=== PATIENT | female | born 1935 | race Caucasian/White ===

== ENCOUNTER → 2019-01-16 | Outpatient (REF) | payer MEDICARE ==
[2019-01-16 19:11] LABS: APPEARANCE, URINE CLEAR (CLEAR); BACTERIA, URINE AUTO NEGATIVE (NEGATIVE); BILIRUBIN, URINE AUTO NEGATIVE (NEGATIVE); BLOOD, URINE BLOOD 1+ (NEGATIVE); COLOR, URINE YELLOW (YELLOW); GLUCOSE, URINE (UA) AUTO NEGATIVE (NEGATIVE); KETONE, URINE AUTO NEGATIVE (NEGATIVE); LEUKOCYTE ESTERASE, URINE AUTO NEGATIVE (NEGATIVE); MUCUS, URINE SMALL (NEGATIVE); NITRITE, URINE AUTO NEGATIVE (NEGATIVE); PROTEIN, URINE AUTO NEGATIVE (NEGATIVE); RBC, URINE AUTO 10 /HPF (0-3); SPECIFIC GRAVITY URINE AUTO 1.018 (1.002-1.035); SQUAMOUS EPITHELIAL CELL UR AU 0 /HPF (0-6); UROBILINOGEN, URINE AUTO 0.2 mg/dL (0.0-2.0); WBC, URINE AUTO 1 /HPF (0-3)
== END ==
LOC: M SMT 18:10
PROVIDERS: ATTEND Nurse Practitioner Family
DX: R31.9 Hematuria, unspecified (principal)
CPT/HCPCS: 36415; 80048; 81001; 87088; 87186; 88108; G0463

== ENCOUNTER → 2019-01-16 | Outpatient (CLI) | payer MEDICARE ==
[2019-01-16 19:18] LABS: BLOOD UREA NITROGEN 12 MG/DL (7-18); CALCIUM LEVEL 8.7 MG/DL (8.8-10.2); CARBON DIOXIDE LEVEL 30 MEQ/L (21-32); CHLORIDE LEVEL 104 MEQ/L (98-107); CREATININE FOR GFR 0.81 MG/DL (0.55-1.30); GLOMERULAR FILTRATION RATE > 60.0 (>32); GLUCOSE, FASTING 89 MG/DL (70-100); POTASSIUM SERUM 3.9 MEQ/L (3.5-5.1); SODIUM LEVEL 139 MEQ/L (136-145)
== END ==
LOC: M SMT 14:46
PROVIDERS: ATTEND Nurse Practitioner Family
DX: R31.9 Hematuria, unspecified (principal)

== ENCOUNTER → 2019-01-23 | Outpatient (CLI) | payer MEDICARE ==
[~2019-01-23] MED LIST: ISOVUE-370 76% 100ML VIAL (Q9967) As Ordered ONE
--- NOTE | 2019-01-24 06:53 | REP ---
Clinical: Hematuria. Technique: Axial precontrast, contrast enhanced, and delayed images of the abdomen and pelvis using 100 ml Isovue 370 intravenous contrast material. Coronal and sagittal re-formations as well as 3-D MIP urogram images obtained. Comparison: None. Findings: Evaluation of the urinary tract system in all phases of enhancement demonstrates normal age-appropriate bilateral kidneys, ureters and bladder. Specifically, no hydroureteronephrosis, perinephric stranding, intrarenal or obstructing ureteral calculi identified. No renal cyst or mass is identified and the kidneys demonstrate symmetric normal enhancement as well as excretion to the collecting system. Mild age-related renal atrophic changes suggested. Liver, spleen, pancreas, and bilateral adrenal glands are normal. Few scattered incidental hepatic and splenic calcifications suggest prior granulomatous disease. Evidence of prior cholecystectomy noted. The enteric system is without obstruction or acute inflammatory process. Scattered colonic and sigmoid diverticulosis noted without acute diverticulitis. Pelvis demonstrates normal bladder and evidence of prior hysterectomy. No ascites. No free air. No adenopathy. Abdominal aorta and vasculature normal. Surrounding musculoskeletal structures are intact. Lung bases demonstrate chronic age-related dependent and fibroatelectatic changes. Impression: 1. Essentially normal appearance to the kidneys and urinary tract system. Mild age-related renal changes are identified. 2. Colonic and sigmoid diverticula without acute diverticulitis. 3. Evidence of prior cholecystectomy and hysterectomy. Electronically Signed by Renato King MD 01/24/2019 06:44 A
== END ==
LOC: M RAD 15:12
PROVIDERS: ATTEND Nurse Practitioner Family
DX: R31.9 Hematuria, unspecified (principal); K57.92 Diverticulitis of intestine, part unspecified, without perforation or abscess without bleeding; Z90.49 Acquired absence of other specified parts of digestive tract
CPT/HCPCS: 74178; Q9967

== ENCOUNTER 2020-05-20 09:05 | Inpatient (IN) | payer MEDICARE ==
[~2020-05-20] VITALS: Ht 167.6 cm; Wt 68.1 kg
[2020-05-20] MEDS ORDERED: BOOSTRIX/ADACEL VACCINE (DIPHTH/PERTUSS/ACELL/TETANUS) 0.5ML SYR IM ONE (09:45)
[2020-05-20] MEDS ORDERED: LIDOCAINE W/EPINEPHRINE 1% 20ML VIAL SC ONE (10:00)
--- NOTE | 2020-05-20 10:17 | REP ---
INDICATION: fall/weakness. COMPARISON: None. TECHNIQUE: SINGLE PORTABLE AP VIEW OF THE CHEST WAS PERFORMED. FINDINGS: THERE IS NO ACUTE INFILTRATE OR PULMONARY EDEMA. LUNGS ARE CLEAR. HEART IS NOT SIGNIFICANTLY ENLARGED. MEDIASTINAL SILHOUETTE IS UNREMARKABLE. THE VISUALIZED OSSEOUS STRUCTURES ARE INTACT. IMPRESSION: NO ACUTE PULMONARY DISEASE. <Electronically signed by Raul Moe > 05/20/20 [id number]
--- NOTE | 2020-05-20 10:18 | REPVR ---
PROCEDURE INFORMATION: Exam: CT Head Without Contrast Exam date and time: 05/20/2020 10:08 AM Age: 84 years old Clinical indication: Injury or trauma; Fall; Blunt trauma (contusions or hematomas) TECHNIQUE: Imaging protocol: Computed tomography of the head without contrast. Radiation optimization: All CT scans at this facility use at least one of these dose optimization techniques: automated exposure control; mA and/or kV adjustment per patient size (includes targeted exams where dose is matched to clinical indication); or iterative reconstruction. COMPARISON: No relevant prior studies available. FINDINGS: Brain: Chronic lacunar infarction right lentiform nucleus and adjacent capsular white matter. Multiple small chronic lacunar infarctions of the bilateral thalami. Moderate hypoattenuating foci are noted in the central cerebral, posterior superior periatrial and anterior lateral ventricular periventricular white matter bilaterally. No intracranial hemorrhage. No mass or acute cortical infarction identified. Cerebral ventricles: Prominence of the ventricular system and subarachnoid spaces is consistent with the patient's age of 84 years. Bones/joints: Right temporomandibular joint primary osteoarthritis. Paranasal sinuses: Visualized sinuses are unremarkable. No fluid levels. Mastoid air cells: Visualized mastoid air cells are well aerated. Orbital cavity: Right prior cataract surgery. Vasculature: Atherosclerotic calcifications are present involving the carotid artery siphons bilaterally. Soft tissues: Unremarkable. Dental: Edentulous maxilla and mandible. IMPRESSION: 1. Chronic lacunar infarction right lentiform nucleus/capsular white matter. 2. Multiple small chronic lacunar infarctions bilateral thalami. 3. Age appropriate supratentorial and infratentorial atrophy. 4. Moderate chronic white matter microvascular ischemic disease. 5. No acute intracranial injury identified. Electronically signed by: Suresh Julian On 05/20/2020 10:18:15 AM
--- NOTE | 2020-05-20 10:19 | REP ---
INDICATION: fall/laceration. COMPARISON: None. TECHNIQUE: AP view of the pelvis is performed as well as AP and frogleg views of bilateral hips. FINDINGS: There is no acute fracture or dislocation. There are mild degenerative changes of both hip joints with mild joint space narrowing and subchondral sclerosis. There is linear periarticular calcification along the lateral aspect of the right hip joint which may represent bursal calcifications. Similar calcifications are seen on the left, to a lesser extent. There are degenerative changes of the lower lumbar spine. IMPRESSION: No acute fracture or dislocation. Arthritic changes. <Electronically signed by Raul Moe > 05/20/20 [id number]
--- NOTE | 2020-05-20 10:20 | REP ---
INDICATION: fall/laceration COMPARISON: None TECHNIQUE: Three views right elbow . FINDINGS: There is no evidence of acute fracture, dislocation, or intrinsic bone disease. IMPRESSION: No fracture or dislocation. <Electronically signed by Raul Moe > 05/20/20 [id number]
--- NOTE | 2020-05-20 10:22 | REPVR ---
PROCEDURE INFORMATION: Exam: CT Cervical Spine Without Contrast Exam date and time: 05/20/2020 10:08 AM Age: 84 years old Clinical indication: Injury or trauma; Fall; Blunt trauma TECHNIQUE: Imaging protocol: Computed tomography images of the cervical spine without contrast. Radiation optimization: All CT scans at this facility use at least one of these dose optimization techniques: automated exposure control; mA and/or kV adjustment per patient size (includes targeted exams where dose is matched to clinical indication); or iterative reconstruction. COMPARISON: No relevant prior studies available. FINDINGS: Bones/joints: Mild C3-C4 and C4-C5 anterolisthesis with annular bulging. Discs/Spinal canal/Neural foramina: Posterior ligamentum flavum ossification at C2-C3, C3-C4, C4-C5, C5-C6 and C6-C7, prominent on the right at C5-C6. Mild left C2-C3 primary facet osteoarthritis. Moderate left C3-C4 and C4-C5 primary facet osteoarthritis. Moderately severe right, moderate left C5-C6 neural foraminal narrowing. Mild left C6-C7 primary facet osteoarthritis. Soft tissues: Transverse ligament calcification. Lungs: Lung apices are normal. Other findings: C5-6 degenerative disc disease with moderate spondylosis. IMPRESSION: 1. Degenerative changes as above. 2. No acute cervical spinal bony injury identified. Electronically signed by: Suresh Julian On 05/20/2020 10:22:11 AM
[2020-05-20 10:23] LABS: BASO % 0.3 % (0.0-1.0); EOS # 0.1 10^3/uL (0.0-0.5); EOS % 0.7 % (0.0-3.0); HEMATOCRIT 39.6 % (36.0-47.0); HEMOGLOBIN 12.9 g/dl (12.0-15.5); LYMPH % 14.7 % (24.0-44.0); MEAN CORPUSCULAR HEMOGLOBIN 31.1 pg (27.0-33.0); MEAN CORPUSCULAR HGB CONC 32.6 g/dl (32.0-36.5); MEAN CORPUSCULAR VOLUME 95.4 fl (80.0-96.0); MONO # 0.7 10^3/uL (0.0-0.8); MONO % 10.5 % (0.0-5.0); NEUTROPHILS # 5.1 10^3/uL (1.5-8.5); NEUTROPHILS % 73.4 % (36.0-66.0); PLATELET COUNT, AUTOMATED 203 10^3/uL (150-450); RED BLOOD COUNT 4.15 10^6/uL (4.00-5.40); WHITE BLOOD COUNT 6.9 10^3/uL (4.0-10.0)
[2020-05-20 10:34] LABS: INR 0.89; PROTHROMBIN TIME 12.2 SECONDS (12.5-14.3)
[2020-05-20 10:35] LABS: PARTIAL THROMBOPLASTIN TIME 27.2 SECONDS (24.2-38.5)
[2020-05-20 10:53] LABS: ALBUMIN 3.5 GM/DL (3.2-5.2); ALT/SGPT 23 U/L (12-78); BILIRUBIN,TOTAL 0.6 MG/DL (0.2-1.0); BLOOD UREA NITROGEN 13 MG/DL (7-18); CALCIUM LEVEL 8.8 MG/DL (8.8-10.2); CARBON DIOXIDE LEVEL 27 MEQ/L (21-32); CHLORIDE LEVEL 106 MEQ/L (98-107); CK-MB VALUE MASS 4.5 NG/ML (<3.6); CPK CREATINE PHOSPHOKINASE 624 U/L (26-192); CREATININE FOR GFR 0.74 MG/DL (0.55-1.30); GLOMERULAR FILTRATION RATE > 60.0 (>32); GLUCOSE, FASTING 101 MG/DL (70-100); MB/CK RELATIVE INDEX 0.72 (< OR =4); POTASSIUM SERUM 4.3 MEQ/L (3.5-5.1); SODIUM LEVEL 139 MEQ/L (136-145); TOTAL PROTEIN 6.6 GM/DL (6.4-8.2); TROPONIN I < 0.02 NG/ML (< 0.10)
--- NOTE | 2020-05-20 11:37 | REP ---
INDICATION: fall COMPARISON: None. TECHNIQUE: Four views right knee. FINDINGS: There is no evidence of acute fracture, dislocation, or intrinsic bone disease.There is moderate joint space narrowing with subchondral sclerosis and mild spurring. There is chondrocalcinosis. There is mild patellar spurring. There is significant soft tissue swelling anterior to the patella and infrapatellar region. IMPRESSION: No fracture or dislocation. Moderate arthritic changes. Anterior soft tissue swelling. <Electronically signed by Raul Moe > 05/20/20 [id number]
[2020-05-20] MEDS ORDERED: AMPICILLIN SOD/SULBACTAM SOD 3 GM in D5W MINI-BAG PLUS 100 ML IV ONE (15:00)
[2020-05-20] MEDS ORDERED: PARO20TA4 PO (15:10)
[2020-05-20] MEDS ORDERED: MED REC COMMENT (15:10)
[2020-05-20] MEDS ORDERED: ALEN70TA74 PO (15:10)
[2020-05-20] MEDS ORDERED: NS 500 ML IV ONE (15:30)
--- NOTE | 2020-05-20 15:55 | HPEPDOC ---
[facility] Medical History & Physical Date of Admission May 20, 2020 Date of Service: May 20, 2020 Attending Physician: Rizwana Tejada MD History and Physical CHIEF COMPLAINT: Fall HISTORY OF PRESENT ILLNESS: Agent is an 84-year-old female with past medical history of depression, unsteady gait requiring walker and cane who presented to [facility] emergency room after calling 911 after falling last evening. The patient is difficult to understand due to her not having her dentures and; however, she is able to recount some of the events of last evening. According to the patient she fell after becoming dizzy. She did not loose consciousness and fell to the ground. She attempted to get up but could not. She is calling 911. She denies chest pain, loss of consciousness, shortness of breath, nausea, vomiting, recent illness, fevers, chills, abdominal pain during the time of her fall. She also denies hitting her head upon eating the ground. She does remember falling and hitting her right elbow and her right knee. In the emergency room the patient was noted to have a laceration of her right elbow which appear to be down to the bone. She was started on antibiotics and stitched. She has had a right knee contusion which was causing significant pain. No concerning focal deficits, neurological issues. Blood pressure was 180 systolic likely secondary to her uncontrolled pain. The patient was given some blood pressure medication and pain medication which helped. Due to her injuries was difficult to ambulate her in the emergency room. CK was elevated at over 600. WBC within normal limits. UA negative, blood cultures were pending. The patient was admitted for fall with extremity injury, unsteady gait, mild rhabdomyolysis. REVIEW OF SYSTEMS: CONSTITUTIONAL: Denies l unexplained weight gain or weight loss, loss of appetite, fever, night sweats EYES: Denies eye drainage, eye pain, visual changes, dry/irritated eye EARS, NOSE, MOUTH, THROAT: Denies difficulty hearing, ringing in ears, mouth sores, loose teeth, sore throat, facial numbness or pain NECK: Denies swollen glands CARDIOVASCULAR: Denies irregular heartbeat, racing heart, chest pains, swelling of feet or legs, pain in legs with walking RESPIRATORY: Denies shortness of breath, night sweats, wheezing, sputum production, oxygen at home, coughing up blood, cough lasting > 1 month GASTROINTESTINAL: Denies abdominal pain, constipation, bloody stool, diarrhea, heartburn, nausea, vomiting GENITOURINARY: Denies painful urination, bloody urine, frequent urination, urgency, leaking urine, impotence INTEGUMENTARY: Denies rash, itching, new skin lesion, change in existing skin lesion, hair loss or increase, breast changes. NEUROLOGICAL: Denies headaches, numbness or tingling PSYCHIATRIC: Denies recurrent bad thoughts, mood swings, hallucinations PAST MEDICAL HISTORY: 1. Depression 2. Hx of unsteady gait 3. Hx of multiple strokes seen on CT 4. DIANA 5. HLD PAST SURGICAL HISTORY: None FAMILY HISTORY: Father: cancer. at 69 y/o Mother: cancer. at 49 y/o. SOCIAL HISTORY: Denies smoking, alcohol or drug use. Patient lives alone and has life alert. She states help comes weekly. She does not drive. She has a son Nic who she would like notified. She is a full code. ALLERGIES: Please see below. HOME MEDICATIONS: Please see below. PHYSICAL EXAMINATION: VS: Please see below CONSTITUTIONAL: Appears tired but cooperative, difficult to understand due to her not having dentures in but appropriate in her answers. AAOx3 EYES: PERRLA, EOM intact, corrective lenses in place HENT, MOUTH: Normocephalic, atraumatic, moist mucous membranes, nasal canula in place NECK: SUPPLE, no JVD, no lymphadenopathy, no carotid bruit CV: Regular rate and rhythm, S1S2 normal, no murmurs/rubs/gallops RESPIRATORY: Clear to auscultation bilaterally, no rales/rhonchi/wheezes GI: BS positive in 4 quadrants, soft, nontender, nondistended, no rebound or guarding, no organomegaly : Deferred MUSCULOSKELETAL: Right elbow injury/laceration, swelling and tender to touch, decreased ROM. Right knee swelling, bruising. No cyanosis, clubbing, joint deformity, extremity edema INTEGUMENTARY: Intact, no rashes, no lesions, no erythema NEUROLOGIC: Cranial Nerves II-XII are intact, no focal deficits PSYCHIATRIC: Mood and affect are normal LABORATORY DATA: Please see below IMAGING: Right elbow XR: No fracture or dislocation. CT head: 1. Chronic lacunar infarction right lentiform nucleus/capsular white matter. 2. Multiple small chronic lacunar infarctions bilateral thalami. 3. Age appropriate supratentorial and infratentorial atrophy. 4. Moderate chronic white matter microvascular ischemic disease. 5. No acute intracranial injury identified. ASSESSMENT: 84-year-old female with past medical history of depression, unsteady gait requiring walker and cane admitted for fall with extremity injury, unsteady gait, mild rhabdomyolysis. PLAN: #Fall 2/2 to dizziness. R/o orthostatic hypotension, ? presyncopal episode, cardiac arrhythmia -Denies chest pain, loss of consciousness -Hx of unsteady gait, uses walker and cane at home -Trop neg -F/u echocardiogram -C/w NS at 100 cc/hr, orthostatic Q12H, tele monitor -PT/OT # Mild rhabdomyolysis -CK elevated after down time after fall -Cr wnl -F/u daily labs, CK -C/w IVFs at 100 cc/hr #Hypertensive urgency, possibly 2/2 to uncontrolled pain and anxiety -No prior hx of HTN, not on home meds -Given hydralazine in ER -Monitor closely when on the floor and on fluids #Elbow laceration -Per ED, deep and to the bone -Pain control -C/w abx for now, transition to PO before discharge #Right knee contusion -C/w treatment above -PT/OT #Depression. -Stable -C/w home med #Hx of CVA -No new neurological deficits -New diagnosis to patient, multiple chronic infarcts seen on CT -Not on home ASA and statin -F/u lipid panel #Hx of mild cognitive impairment -Was appropriate to help answer some questions for mem -Would help by talking to family to clarify history -Redirect when and if needed #HLD -F/u lipid panel -Not on statin #DVT px -Enoxaparin DISPOSITION: Admitted under observation status. PT/OT ordered- will determine plan for discharge. Vital Signs Vital Signs Date Time Temp Pulse Resp B/P (MAP) Pulse Ox O2 Delivery O2 Flow Rate FiO2 05/20/20 15:30 97.8 92 20 188/60 (102) 95 Room Air Laboratory Data Labs 24H Laboratory Tests 2 05/20/20 10:12: Immature Granulocyte % (Auto) 0.4, Neutrophils (%) (Auto) 73.4H, Lymphocytes (%) (Auto) 14.7L, Monocytes (%) (Auto) 10.5H, Eosinophils (%) (Auto) 0.7, Basophils (%) (Auto) 0.3, Neutrophils # (Auto) 5.1, Lymphocytes # (Auto) 1.0L, Monocytes # (Auto) 0.7, Eosinophils # (Auto) 0.1, Basophils # (Auto) 0.0, Nucleated Red Blood Cells % (auto) 0.0, Prothrombin Time 12.2, Prothromb Time International Ratio 0.89, Activated Partial Thromboplast Time 27.2, Anion Gap 6L, Glomerular Filtration Rate > 60.0, Calcium Level 8.8, Total Bilirubin 0.6, Aspartate Amino Transf (AST/SGOT) 39H, Alanine Aminotransferase (ALT/SGPT) 23, Alkaline Phosphatase 69, Total Creatine Kinase 624H, Creatine Kinase MB 4.5H, Creatine Kinase MB Relative Index 0.72, Troponin I < 0.02, Total Protein 6.6, Albumin 3.5, Albumin/Globulin Ratio 1.1L 05/20/20 10:26: Urine Color YELLOW, Urine Appearance CLEAR, Urine pH 7.0, Urine Specific [place] 1.013, Urine Protein NEGATIVE, Urine Glucose (UA) NEGATIVE, Urine Ketones NEGATIVE, Urine Blood NEGATIVE, Urine Nitrite NEGATIVE, Urine Bilirubin NEGATIVE, Urine Urobilinogen 0.2, Urine Leukocyte Esterase NEGATIVE, Urine WBC (Auto) 1, Urine RBC (Auto) 12H, Urine Hyaline Casts (Auto) 0, Urine Bacteria (Au to) NEGATIVE, Urine Squamous Epithelial Cells 0, Urine Sperm (Auto) 05/20/20 15:17: CBC/BMP Laboratory Tests 05/20/20 10:12 Microbiology Microbiology 05/20/20 Blood Culture, Received Pending 05/20/20 Blood Culture, Received Pending Home Medications Scheduled Alendronate Sodium (Alendronate Sodium) 70 Mg Tablet, 70 MG PO QWEEK Paroxetine HCl (Paroxetine) 20 Mg Tablet, 20 MG PO DAILY Miscellaneous Medications [Med Rec Comment] UNABLE TO VERIFY WITH PATIENT, MED LIST OBTAINED FROM [facility] RECENTLY PICKED UP 05/07/20 Allergies Coded Allergies: No Known Allergies (Verified Allergy, Unknown, 05/20/20) A-FIB/CHADSVASC A-FIB History Current/History of A-Fib/PAF?: No Current PO Anticoag Therapy: No Age/Risk Factor Scoring CHADSVASC: CHADSVASC Response (Comments) Value Age Risk Factor Age >/= 75 years old 2 Gender Risk Factor Female 1 Hx of CHF No 0 Hx of HTN No 0 Hx of Stroke/TIA/or VTE Yes 2 Hx of Diabetes No 0 Total 5 Treatment Treatment ordered: Other Other anticoagulant ordered: enoxaparin Rizwana Tejada MD May 20, 2020 15:55
[2020-05-20] MEDS ORDERED: **hydrALAZINE HCL** 25 MG TAB PO ONE (16:15)
[2020-05-20] MEDS ORDERED: cloNIDine 0.1 MG TAB PO ONE (17:15)
[2020-05-20 18:30] VITALS: BP 134/62
[2020-05-20] MEDS: NS 1,000 ML IV SCH (18:44)
[2020-05-20] MEDS: AMPICILLIN SOD/SULBACTAM SOD 1.5 GM in D5W MINI-BAG PLUS 50 ML IV SCH (20:50)
[2020-05-20 22:00] VITALS: BP_SYST 138; BP_SYST 160; BP_SYST 168; BP_DIAS 62; BP_DIAS 72; BP_DIAS 78
[2020-05-20] MEDS ORDERED: NYSTATIN 100,000 UNITS/GM TOPICAL PWD 15 GM TOP PRN (22:00)
[2020-05-21] MEDS: NS 1,000 ML IV SCH ×3 (03:32→22:30)
[2020-05-21] MEDS: AMPICILLIN SOD/SULBACTAM SOD 1.5 GM in D5W MINI-BAG PLUS 50 ML IV SCH ×4 (03:32→20:30)
[2020-05-21 06:00] VITALS: BP_SYST 147; BP_SYST 148; BP_DIAS 81; BP_DIAS 82
[2020-05-21 06:05] VITALS: BP 148/81
[2020-05-21 06:45] LABS: HEMATOCRIT 37.7 % (36.0-47.0); HEMOGLOBIN 12.2 g/dl (12.0-15.5); MEAN CORPUSCULAR HEMOGLOBIN 31.4 pg (27.0-33.0); MEAN CORPUSCULAR HGB CONC 32.4 g/dl (32.0-36.5); MEAN CORPUSCULAR VOLUME 97.2 fl (80.0-96.0); PLATELET COUNT, AUTOMATED 186 10^3/uL (150-450); RED BLOOD COUNT 3.88 10^6/uL (4.00-5.40); WHITE BLOOD COUNT 7.2 10^3/uL (4.0-10.0)
[2020-05-21 07:04] LABS: ALBUMIN 2.9 GM/DL (3.2-5.2); ALT/SGPT 19 U/L (12-78); BILIRUBIN,TOTAL 0.6 MG/DL (0.2-1.0); BLOOD UREA NITROGEN 8 MG/DL (7-18); CALCIUM LEVEL 7.9 MG/DL (8.8-10.2); CARBON DIOXIDE LEVEL 25 MEQ/L (21-32); CHLORIDE LEVEL 109 MEQ/L (98-107); CHOLESTEROL LEVEL 248 MG/DL (<200); CHOLESTEROL RISK RATIO 4.509 (<5); CREATININE FOR GFR 0.65 MG/DL (0.55-1.30); GLOMERULAR FILTRATION RATE > 60.0 (>32); GLUCOSE, FASTING 98 MG/DL (70-100); HDL CHOLESTEROL 55 MG/DL (>40); LDL CHOLESTEROL 166 MG/DL (<100); NON-HDL-C 193 MG/DL; POTASSIUM SERUM 3.5 MEQ/L (3.5-5.1); SODIUM LEVEL 140 MEQ/L (136-145); TOTAL PROTEIN 6.1 GM/DL (6.4-8.2); TRIGLYCERIDES LEVEL 133 MG/DL (<150)
[2020-05-21] MEDS ORDERED: ASPIRIN 300 MG SUPP PR SCH (09:00)
[2020-05-21] MEDS ORDERED: PARoxetine 20MG TABLET PO SCH (09:00)
[2020-05-21] MEDS: ENOXAPARIN 30MG/0.3ML SYRINGE (J1650 PER 10MG) SC SCH (09:02)
--- NOTE | 2020-05-21 12:15 | IPNPDOC ---
Date Seen The patient was seen on 05/21/20. Progress Note SUBJECTIVE: Neurological changes described below in physical exam noted on rounds, much different from admission 05/20/20. STAT MRI brain ordered. NPO status. Discuss with Janis, [id number] to her son. She states that she is not normally slurred speech and she sounded totally different from her baseline this AM. OBJECTIVE: PHYSICAL EXAMINATION: VS: Please see below CONSTITUTIONAL: having word finding difficulty, slurred speech on exam. slower to respond today, awake but lethargic. able to tell me name and place but not reason she is here. Change from admission on 05/20/20 EYES: PERRLA, EOM intact, corrective lenses in place HENT, MOUTH: Normocephalic, atraumatic, dry oral mucous membranes NECK: SUPPLE, no JVD, no lymphadenopathy, no carotid bruit CV: Regular rate and rhythm, S1S2 normal, no murmurs/rubs/gallops RESPIRATORY: Clear to auscultation bilaterally, no rales/rhonchi/wheezes GI: BS positive in 4 quadrants, soft, nontender, nondistended, no rebound or guarding, no organomegaly : Deferred MUSCULOSKELETAL: right knee decreased ROM. Right knee swelling, bruising. No cyanosis, clubbing, joint deformity, extremity edema INTEGUMENTARY: Right elbow injury/laceration, swelling and tender to touch, right knee bruising, tender to touch, no rashes, no lesions, no erythema NEUROLOGIC: Right side facial droop-new compared to yesterday, tongue deviates to the right on exam. Right upper and lower ext weakness, 2/5 on exam for strength for RUE and RLE. 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 Strength on the left 4/5 which was similar to yesterday for upper and lower. Word finding difficulty, slow to respond, slurred speech. No pupillary deficits. LABORATORY DATA: Please see below IMAGING: MRI brain: F/u results Right elbow XR: No fracture or dislocation. CT head: 1. Chronic lacunar infarction right lentiform nucleus/capsular white matter. 2. Multiple small chronic lacunar infarctions bilateral thalami. 3. Age appropriate supratentorial and infratentorial atrophy. 4. Moderate chronic white matter microvascular ischemic disease. 5. No acute intracranial injury identified. ASSESSMENT: 84-year-old female with past medical history of depression, unsteady gait requiring walker and cane admitted for fall with extremity injury, unsteady gait, mild rhabdomyolysis currently ruling out CVA. . PLAN: #Right facial droop, increased weakness, slurred speech r/o CVA -Hypertensive urgency on admission 05/30/20 but no neurological deficits noted -High risk with hx of multiple chronic infarcts seen on CT head -Lipid panel: high cholesterol -Previously not on ASA and Statin -Speech therapy evaluated: mechanical soft, thin liquids -F/u STAT MRI brain -Tele -BP 148/80 but patient is on IVFs at 100 cc/hr -Contact neuro based off of results -NPO, neuro checks [id number] #Fall 2/2 to dizziness. R/o orthostatic hypotension, ? presyncopal episode, cardiac arrhythmia r/o developing neurological insult as cause also -Hx of unsteady gait, uses walker and cane at home, prior strokes (unknown to patient) vs. TIA -Trop neg -F/u echocardiogram -C/w NS at 100 cc/hr, neuro checks, tele monitor -PT/OT ordered # Mild rhabdomyolysis -Cr wnl, CK elevated >600 on admission -C/w IVFs at 100 cc/hr -F/u repeat CK in AM #Hypertensive urgency, possibly 2/2 to uncontrolled pain and anxiety- Resolved -BP improved with pain control, hydralazine and clonidine after admission -148/81 -Given hydralazine in ER -Monitor closely when on the floor and on fluids #Elbow laceration -Per ED, deep and to the bone -Pain control -C/w abx for now, transition to PO before discharge #Right knee contusion -C/w treatment above -PT/OT #Depression. -Stable -C/w home med #Hx of mild cognitive impairment -Was appropriate to help answer some questions for me on admission -discussed with family about baseline today #HLD -Elevated cholesterol -Not on statin but will start if able to take PO #DVT px -Enoxaparin DISPOSITION: Admit under inpatient status. F/u STAT MRI. e. VS, I&O, 24H, Fishbone Vital Signs/I&O Vital Signs Date Time Temp Pulse Resp B/P (MAP) Pulse Ox O2 Delivery O2 Flow Rate FiO2 05/21/20 06:05 87 148/81 (103) 05/21/20 06:00 98.6 20 99 Room Air I&O- Last 24 Hours up to 6 AM 05/21/20 06:00 Intake Total 1800 ml Output Total 300 ml Balance 1500 ml Laboratory Data 24H LABS Laboratory Tests 2 05/20/20 15:17: Coronavirus (COVID-19)(PCR) NEGATIVE 05/21/20 06:05: Nucleated Red Blood Cells % (auto) 0.0, Anion Gap 6L, Glomerular Filtration Rate > 60.0, Calcium Level 7.9L, Total Bilirubin 0.6, Aspartate Amino Transf (AST/SGOT) 28, Alanine Aminotransferase (ALT/SGPT) 19, Alkaline Phosphatase 63, Total Protein 6.1L, Albumin 2.9L, Albumin/Globulin Ratio 0.9L, Triglycerides Level 133, Total Cholesterol 248H, LDL Cholesterol 166H, Non-HDL Cholesterol (LDL + VLDL) 193, Total HDL Cholesterol 55, Cholesterol/HDL Ratio 4.509 CBC/BMP Laboratory Tests 05/21/20 06:05 Microbiology Microbiology 05/20/20 Blood Culture - Preliminary, Resulted No growth after 24 hours . All specim... 05/20/20 Blood Culture - Preliminary, Resulted No growth after 24 hours . All specim... Current Medications Current Medications Medications (Trade) Dose Ordered Sig/Chen Route PRN Reason Start Time Stop Time Status Last Admin Dose Admin Acetaminophen (Tylenol Tab) 650 mg Q4H PRN PO PAIN OR FEVER 05/20/20 16:00 Ampicillin Sodium/ Sulbactam Sodium 1.5 gm/Dextrose 50 ml @ 100 mls/hr Q6H IV 05/20/20 21:00 05/21/20 09:01 Enoxaparin Sodium (Lovenox) 30 mg DAILY SC 05/21/20 09:00 05/21/20 09:02 Home Med (Med Rec Complete!) ASDIRECTED XX 05/20/20 15:15 05/20/20 15:11 DC Nystatin (Mycostatin Powder, Nystop) Apply to intertriginous abdomi... BIDP PRN TOP RASH 05/20/20 22:00 Paroxetine HCl (PAXil) 20 mg DAILY PO 05/21/20 09:00 05/20/20 17:35 DC Sodium Chloride 1,000 ml @ 100 mls/hr Q10H IV 05/20/20 16:30 05/21/20 03:32 Allergies Coded Allergies: No Known Allergies (Verified Allergy, Unknown, 05/20/20) Rizwana Tejada MD May 21, 2020 12:15
--- NOTE | 2020-05-21 12:29 | REPVR ---
PROCEDURE INFORMATION: Exam: MR Head Without Contrast Exam date and time: 05/21/2020 11:52 AM Age: 84 years old Clinical indication: Speech disturbance and weakness, facial; Slurred speech; Additional info: Weakness, R/O CVA TECHNIQUE: Imaging protocol: MR of the head without contrast. COMPARISON: CT Head without contrast 05/20/2020 9:45 AM FINDINGS: Brain: 6 mm posterior limb left internal capsule acute lacunar infarction. Chronic right caudate body, paraventricular goldstein radiata and upper globus pallidus lacunar infarction. Chronic left mid paraventricular goldstein radiata lacunar infarction. Bilateral chronic thalamic lacunar infarctions. Extensive T2 hyperintense hyperintensity in the central cerebral and lateral ventricular periventricular white matter bilaterally. Cerebral ventricles: Age-appropriate. No hydrocephalus. Bones/joints: No acute abnormality identified. Paranasal sinuses: Normal as visualized. No acute sinusitis. Mastoid air cells: Normal as visualized. No mastoid effusion. Orbits: Right prior cataract surgery. Soft tissues: Unremarkable. IMPRESSION: 1. Acute left internal capsule lacunar infarction. 2. Chronic right deep nuclear and capsular white matter lacunar infarction. 3. Chronic left mid paraventricular goldstein radiata lacunar infarction. 4. Bilateral chronic thalamic lacunar infarctions. 5. Chronic microvascular ischemic white matter disease. Electronically signed by: Suresh Julian On 05/21/2020 12:28:47 PM
[2020-05-21 12:46] VITALS: BP 159/81
[2020-05-21 13:00] VITALS: BP 178/84
--- NOTE | 2020-05-21 14:24 | REPVR ---
PROCEDURE INFORMATION: Exam: MR Angiogram Head Without Contrast, Arteries Exam date and time: 05/21/2020 2:10 PM Age: 84 years old Clinical indication: Condition or disease; Infarction; Additional info: Left internal capsule infarct, acute TECHNIQUE: Imaging protocol: MR angiogram head without contrast. Exam focused on the arteries. COMPARISON: MRI-Brain without Contrast 05/21/2020 11:[address] Head without contrast 05/20/2020 9:45:19 AM FINDINGS: ANTERIOR CIRCULATION: Right internal carotid artery: Medially projecting 8 mm aneurysm of the right internal carotid artery cavernous segment (series 201, frames 85-87). No specific evidence of rupture. No stenosis. Right middle cerebral artery: Moderate-severe stenoses proximal right MCA M2 inferior and superior divisions. Right anterior cerebral artery: Moderate stenosis proximal right anterior cerebral artery A1 segment. Left internal carotid artery: Intracranial segment is patent with no significant stenosis. No aneurysm. Left middle cerebral artery: Moderate stenoses left middle cerebral artery M1 segment (series 201, frame 103). Left anterior cerebral artery: No occlusion or significant stenosis. No aneurysm. POSTERIOR CIRCULATION: Right vertebral artery: No occlusion or significant stenosis. No aneurysm. Left vertebral artery: No occlusion or significant stenosis. No aneurysm. Basilar artery: No occlusion or significant stenosis. No aneurysm. Right posterior cerebral artery: Severe stenosis right posterior cerebral artery P1/2, P2 and P3 segments. Left posterior cerebral artery: Severe stenosis left posterior cerebral artery P3 segment. IMPRESSION: 1. Right internal carotid artery aneurysm. 2. Moderate stenoses left middle cerebral artery M1 segment. 3. Moderate stenosis proximal right anterior cerebral artery A1 segment. 4. Severe stenosis right posterior cerebral artery P1/2, P2 and P3 segments. 5. Severe stenosis left posterior cerebral artery P3 segment. 6. Moderate-severe stenoses proximal right MCA M2 inferior and superior divisions. Electronically signed by: Suresh Julian On 05/21/2020 14:24:27 PM
--- NOTE | 2020-05-21 14:50 | REP ---
INDICATION: acute internal capsule infarct COMPARISON: None. TECHNIQUE: Real-time ultrasound evaluation and duplex Doppler interrogation of the extracranial carotid vasculature is performed. FINDINGS: There is mild plaquing and narrowing in both carotid bulbs extending into the internal and external carotid arteries. Luminal narrowing is less than 50%. There is no evidence of hemodynamically significant stenosis of either internal carotid artery. Normal flow velocities are seen. The vertebral arteries demonstrate normal direction of flow. RIGHT LEFT Peak systolic velocity ICA 53.2 cm/s 62.8 cm/s End diastolic velocity ICA 29.2 cm/s 18 cm/s Peak systolic velocity CCA 69.3 cm/s 70.8cm/s Peak systolic velocity ECA 60.4 cm/s 74.1 cm/s ICA/CCA ratio 0.77 0.89 IMPRESSION: Bilateral luminal narrowing of the internal carotid arteries less than 50%. No evidence of hemodynamically significant stenosis. <Electronically signed by Raul Moe > 05/21/20 [id number]
[2020-05-21 16:00] VITALS: BP 162/80
[2020-05-21 20:00] VITALS: BP 158/70
[2020-05-22] VITALS (8 sets, daily range): BP systolic 134–206; BP diastolic 78–100
[2020-05-22] MEDS: AMPICILLIN SOD/SULBACTAM SOD 1.5 GM in D5W MINI-BAG PLUS 50 ML IV SCH ×4 (04:23→21:09)
[2020-05-22 05:29] LABS: HEMATOCRIT 38.7 % (36.0-47.0); HEMOGLOBIN 12.8 g/dl (12.0-15.5); MEAN CORPUSCULAR HEMOGLOBIN 31.8 pg (27.0-33.0); MEAN CORPUSCULAR HGB CONC 33.1 g/dl (32.0-36.5); PLATELET COUNT, AUTOMATED 193 10^3/uL (150-450); RED BLOOD COUNT 4.03 10^6/uL (4.00-5.40); WHITE BLOOD COUNT 8.6 10^3/uL (4.0-10.0)
[2020-05-22 05:52] LABS: ALBUMIN 3.1 GM/DL (3.2-5.2); ALT/SGPT 21 U/L (12-78); BILIRUBIN,TOTAL 0.7 MG/DL (0.2-1.0); BLOOD UREA NITROGEN 6 MG/DL (7-18); CALCIUM LEVEL 7.8 MG/DL (8.8-10.2); CARBON DIOXIDE LEVEL 24 MEQ/L (21-32); CHLORIDE LEVEL 107 MEQ/L (98-107); CREATININE FOR GFR 0.61 MG/DL (0.55-1.30); GLOMERULAR FILTRATION RATE > 60.0 (>32); GLUCOSE, FASTING 109 MG/DL (70-100); POTASSIUM SERUM 3.2 MEQ/L (3.5-5.1); SODIUM LEVEL 138 MEQ/L (136-145); TOTAL PROTEIN 6.7 GM/DL (6.4-8.2)
[2020-05-22] MEDS: POTASSIUM CHLORIDE 10 MEQ SR TABLET PO ONE ×3 (07:45→10:57)
[2020-05-22] MEDS: ASPIRIN 81 MG CHEW TABLET PO SCH ×3 (09:00→10:57)
[2020-05-22] MEDS: ATORVASTATIN 20 MG TAB PO SCH ×3 (09:00→10:57)
[2020-05-22] MEDS: CLOPIDOGREL 75 MG TAB PO SCH ×3 (09:00→10:57)
[2020-05-22] MEDS: ENOXAPARIN 30MG/0.3ML SYRINGE (J1650 PER 10MG) SC SCH (09:33)
--- NOTE | 2020-05-22 11:37 | IPNPDOC ---
Date Seen The patient was seen on 05/22/20. Progress Note SUBJECTIVE: Confused this AM, believes she is at home and want to go "downstairs to see her son". She did not sleep well per staff. She is agitated and trying to get out of bed. Allowing permissive hypertension from 140-170 mmHg, decreased IVFs today. She refused meds this AM due to agitation but then later rested. OBJECTIVE: PHYSICAL EXAMINATION: VS: Please see below CONSTITUTIONAL: Angry with some increased agitation. EYES: PERRLA, EOM intact, corrective lenses in place HENT, MOUTH: Normocephalic, atraumatic, dry oral mucous membranes NECK: SUPPLE, no JVD, no lymphadenopathy, no carotid bruit CV: Regular rate and rhythm, S1S2 normal, no murmurs/rubs/gallops RESPIRATORY: Clear to auscultation bilaterally, no rales/rhonchi/wheezes GI: BS positive in 4 quadrants, soft, nontender, nondistended, no rebound or guarding, no organomegaly : Deferred MUSCULOSKELETAL: right knee decreased ROM. Right knee swelling, bruising. No cyanosis, clubbing, joint deformity, extremity edema INTEGUMENTARY: Right elbow injury/laceration, swelling and tender to touch, right knee bruising, tender to touch, no rashes, no lesions, no erythema NEUROLOGIC: Right side facial droop persists, Right upper and lower ext weakness, 2/5 on exam for strength for RUE and RLE. 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 Strength on the left 4/5 which was similar to yesterday for upper and lower. Slurred speech. No pupillary deficits. AAOx1 (self) LABORATORY DATA: Please see below IMAGING: MRA brain: 1. Right internal carotid artery aneurysm. 2. Moderate stenoses left middle cerebral artery M1 segment. 3. Moderate stenosis proximal right anterior cerebral artery A1 segment. 4. Severe stenosis right posterior cerebral artery P1/2, P2 and P3 segments. 5. Severe stenosis left posterior cerebral artery P3 segment. 6. Moderate-severe stenoses proximal right MCA M2 inferior and superior divisions. MRI brain: 1. Acute left internal capsule lacunar infarction. 2. Chronic right deep nuclear and capsular white matter lacunar infarction. 3. Chronic left mid paraventricular goldstein radiata lacunar infarction. 4. Bilateral chronic thalamic lacunar infarctions. 5. Chronic microvascular ischemic white matter disease. Right elbow XR: No fracture or dislocation. CT head: 1. Chronic lacunar infarction right lentiform nucleus/capsular white matter. 2. Multiple small chronic lacunar infarctions bilateral thalami. 3. Age appropriate supratentorial and infratentorial atrophy. 4. Moderate chronic white matter microvascular ischemic disease. 5. No acute intracranial injury identified. ASSESSMENT: 84-year-old female with past medical history of depression, unsteady gait requiring walker and cane admitted for fall with extremity injury, unsteady gait, mild rhabdomyolysis currently ruling out CVA. . PLAN: Discussed with Dr. Shell who suggested MRA brain, carotid doppler, [place] aspirin, tele,neuro checks. Believed this is likely 2/2 to uncontrolled HTN that she had on arrival, evolved. Echo already ordered. Repeating swallowing evaluation in the AM and if does well can start on atorvastatin 40 mg Po daily. Neurology consulted and will see. Transferring to PCU. 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 -C/w IVFs today but decreased rate -Neuro checks [id number] -PT/OT, speech therapy. #Hypertension, uncontrolled -BP improved with pain control, hydralazine and clonidine after admission -Allowing permissive hypertension currently with CVA of 140-170 mmHg -On 05/23/20 begin normalizing BP with medications #Altered mental status likely 2/2 to sleep deprivation, recent CVA with underlying mild cognitive impairment -Ensure mental status change is not 2/2 to worsening neurological event-not suspecting at this time -Start on trazodone HS to help sleep this evening #Fall 2/2 to insult above likely -C/w PT/OT # Mild rhabdomyolysis -Cr wnl, CK elevated >600 on admission -Decreased IVFs today, encourage food, drink #Elbow laceration -Per ED, deep and to the bone -Pain control -C/w abx for now, transition to PO if able #Right knee contusion -C/w treatment above -PT/OT #Depression. -Stable -C/w home med #Hx of mild cognitive impairment -Was appropriate to help answer some questions for me on admission -Currently agitated -discussed with family about baseline today #HLD -Elevated cholesterol -started on statin #DVT px -Enoxaparin DISPOSITION: Admit under inpatient status. Will need continued PT/OT. VS, I&O, 24H, Fishbone Vital Signs/I&O Vital Signs Date Time Temp Pulse Resp B/P (MAP) Pulse Ox O2 Delivery O2 Flow Rate FiO2 05/22/20 08:00 97.8 110 18 134/93 (107) 93 Room Air I&O- Last 24 Hours up to 6 AM 05/22/20 06:00 Intake Total 560 ml Output Total 50 ml Balance 510 ml Laboratory Data 24H LABS Laboratory Tests 2 05/22/20 04:49: Nucleated Red Blood Cells % (auto) 0.0, Anion Gap 7L, Glomerular Filtration Rate > 60.0, Calcium Level 7.8L, Total Bilirubin 0.7, Aspartate Amino Transf (AST/SGOT) 26, Alanine Aminotransferase (ALT/SGPT) 21, Alkaline Phosphatase 69, Total Protein 6.7, Albumin 3.1L, Albumin/Globulin Ratio 0.9L CBC/BMP Laboratory Tests 05/22/20 04:49 Microbiology Microbiology 05/20/20 Blood Culture - Preliminary, Resulted No Growth after 48 hours. All Specime... 05/20/20 Blood Culture - Preliminary, Resulted No Growth after 48 hours. All Specime... Current Medications Current Medications Medications (Trade) Dose Ordered Sig/Chen Route PRN Reason Start Time Stop Time Status Last Admin Dose Admin Acetaminophen (Tylenol Tab) 650 mg Q4H PRN PO PAIN OR FEVER 05/20/20 16:00 Ampicillin Sodium/ Sulbactam Sodium 1.5 gm/Dextrose 50 ml @ 100 mls/hr Q6H IV 05/20/20 21:00 05/22/20 09:34 Aspirin (Aspirin Chewable) 81 mg DAILY PO 05/22/20 09:00 05/22/20 10:57 Aspirin (Aspirin) 300 mg DAILY [place] 05/21/20 09:00 05/22/20 01:01 DC 05/21/20 14:34 Atorvastatin Calcium (Lipitor) 40 mg DAILY PO 05/22/20 09:00 05/22/20 10:57 Clopidogrel Bisulfate (PLAVix) 75 mg DAILY PO 05/22/20 09:00 05/22/20 10:57 Enoxaparin Sodium (Lovenox) 30 mg DAILY SC 05/21/20 09:00 05/22/20 09:33 Home Med (Med Rec Complete!) ASDIRECTED XX 05/20/20 15:15 05/20/20 15:11 DC Nystatin (Mycostatin Powder, Nystop) Apply to intertriginous abdomi... BIDP PRN TOP RASH 05/20/20 22:00 Paroxetine HCl (PAXil) 20 mg DAILY PO 05/21/20 09:00 05/20/20 17:35 DC Sodium Chloride 1,000 ml @ 75 mls/hr [id number] IV 05/20/20 16:30 05/21/20 13:09 Allergies Coded Allergies: No Known Allergies (Verified Allergy, Unknown, 05/20/20) Rizwana Tejada MD May 22, 2020 11:37
[2020-05-22] MEDS ORDERED: PILL CUTTER 1 EACH XX PRN (12:00)
[2020-05-22] MEDS: NS 1,000 ML IV SCH (14:05)
[2020-05-22] MEDS ORDERED: traZODone 25MG PER 1/2 TABLET PO SCH (21:00)
[2020-05-23] VITALS: BP 142/76
[2020-05-23] MEDS: AMPICILLIN SOD/SULBACTAM SOD 1.5 GM in D5W MINI-BAG PLUS 50 ML IV SCH ×4 (02:30→19:57)
[2020-05-23 04:00] VITALS: BP_SYST 146; BP_SYST 170; BP_DIAS 69; BP_DIAS 80
[2020-05-23 04:27] LABS: BLOOD UREA NITROGEN 9 MG/DL (7-18); CALCIUM LEVEL 7.9 MG/DL (8.8-10.2); CARBON DIOXIDE LEVEL 25 MEQ/L (21-32); CHLORIDE LEVEL 107 MEQ/L (98-107); GLOMERULAR FILTRATION RATE > 60.0 (>32); GLUCOSE, FASTING 117 MG/DL (70-100); POTASSIUM SERUM 3.4 MEQ/L (3.5-5.1); SODIUM LEVEL 139 MEQ/L (136-145)
[2020-05-23 04:31] LABS: HEMATOCRIT 35.2 % (36.0-47.0); HEMOGLOBIN 11.1 g/dl (12.0-15.5); MEAN CORPUSCULAR HEMOGLOBIN 30.7 pg (27.0-33.0); MEAN CORPUSCULAR HGB CONC 31.5 g/dl (32.0-36.5); MEAN CORPUSCULAR VOLUME 97.5 fl (80.0-96.0); PLATELET COUNT, AUTOMATED 187 10^3/uL (150-450); RED BLOOD COUNT 3.61 10^6/uL (4.00-5.40); WHITE BLOOD COUNT 8.6 10^3/uL (4.0-10.0)
[2020-05-23] MEDS: NS 1,000 ML IV SCH (04:42)
[2020-05-23 08:00] VITALS: BP 188/80
[2020-05-23] MEDS ORDERED: FUROSEMIDE 20 MG TAB PO ONE (09:00)
[2020-05-23] MEDS ORDERED: POTASSIUM CHLORIDE 10 MEQ SR TABLET PO SCH (09:00)
[2020-05-23] MEDS: ENOXAPARIN 30MG/0.3ML SYRINGE (J1650 PER 10MG) SC SCH (09:02)
[2020-05-23] MEDS ORDERED: hydrALAZINE 20MG/ML 1ML VIAL (J0360 PER 20MG) IV STA (09:04)
[2020-05-23] MEDS: ASPIRIN 81 MG CHEW TABLET PO SCH (10:53)
[2020-05-23] MEDS: lisinopriL 5 MG TAB PO SCH (10:54)
[2020-05-23] MEDS: ATORVASTATIN 20 MG TAB PO SCH (10:54)
[2020-05-23] MEDS: CLOPIDOGREL 75 MG TAB PO SCH (10:56)
[2020-05-23 12:00] VITALS: BP 161/67
--- NOTE | 2020-05-23 14:11 | IPNPDOC ---
Date Seen The patient was seen on 05/23/20. Progress Note SUBJECTIVE: More alert this AM, sobbing the entire encounter. Per nursing, she has been depressed since 05/22/20, crying often. She was very upset yesterday, frustrated with not being able to go home. Discussed case with Dr. Morrison, psychiatry. Will try to set up Facetime today with family, as being isolated from family is not helpful in this situation. OBJECTIVE: PHYSICAL EXAMINATION: VS: Please see below CONSTITUTIONAL: tearful, lethargic but AAOx2, following some commands EYES: PERRLA, EOM intact HENT, MOUTH: Normocephalic, atraumatic, dry oral mucous membranes NECK: SUPPLE, no JVD, no lymphadenopathy, no carotid bruit CV: Regular rate and rhythm, S1S2 normal, no murmurs/rubs/gallops RESPIRATORY: Clear to auscultation bilaterally, no rales/rhonchi/wheezes GI: BS positive in 4 quadrants, soft, nontender, nondistended, no rebound or guarding, no organomegaly : Deferred MUSCULOSKELETAL: right knee decreased ROM. Right knee swelling, bruising. No cyanosis, clubbing, joint deformity, extremity edema INTEGUMENTARY: Right elbow injury/laceration, swelling and tender to touch- healing well. Right knee bruising, tender to touch, no rashes, no lesions, no erythema- improving slowly. NEUROLOGIC: Right side facial droop persists, Right upper and lower ext weakness, 2/5 on exam for strength for RUE and RLE. 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 Strength on the left 4/5 which was similar to yesterday for upper and lower. Slurred speech. No pupillary deficits. AAOx1 (self) LABORATORY DATA: Please see below IMAGING: Echocardiogram completed, pending results transcribed MRA brain: 1. Right internal carotid artery aneurysm. 2. Moderate stenoses left middle cerebral artery M1 segment. 3. Moderate stenosis proximal right anterior cerebral artery A1 segment. 4. Severe stenosis right posterior cerebral artery P1/2, P2 and P3 segments. 5. Severe stenosis left posterior cerebral artery P3 segment. 6. Moderate-severe stenoses proximal right MCA M2 inferior and superior divisions. MRI brain: 1. Acute left internal capsule lacunar infarction. 2. Chronic right deep nuclear and capsular white matter lacunar infarction. 3. Chronic left mid paraventricular goldstein radiata lacunar infarction. 4. Bilateral chronic thalamic lacunar infarctions. 5. Chronic microvascular ischemic white matter disease. Right elbow XR: No fracture or dislocation. CT head: 1. Chronic lacunar infarction right lentiform nucleus/capsular white matter. 2. Multiple small chronic lacunar infarctions bilateral thalami. 3. Age appropriate supratentorial and infratentorial atrophy. 4. Moderate chronic white matter microvascular ischemic disease. 5. No acute intracranial injury identified. ASSESSMENT: 84-year-old female with past medical history of depression, unsteady gait requiring walker and cane admitted for fall with extremity injury, unsteady gait, mild rhabdomyolysis currently ruling out CVA. . 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 -Permissive HTN stopping today. BP high as 180 mmHg this AM. -Mod-severe stenosis noted on MRA brain -Lipid panel: high cholesterol -Speech therapy evaluated: pureed diet, thin liquids -Neuro consulted and evaluated -Echocardiogram done, pending results -D/c IVFs, started lisinopril at lower dose. Goal is <140/80 mmHg. -C/w dual antiplatelet therapy: ASA and plavix. C/w statin. -PT/OT, speech therapy. #Hypertension, uncontrolled -BP 180 systolic today -Please see plan above. #Altered mental status likely 2/2 to recent CVA with underlying mild cognitive impairment -Slightly more oriented this AM. Less confused on exam. More tearful, sad. -Concern is for developing of depression with not eating, taking medications, increased weeping, tearful. -At this time cannot diagnose as depression as CVA only occurred several days ago. -Discussed case with Dr. Morrison who advised to hold off on treatment. Can reassess in 1 week, if depression screening positive then can consider starting SSRI like paroxetine or sertraline- safest in geriatric patients. Avoid venlafaxine, fluoxetine. #Unsteady gait 2/2 to CVA -PT: "Patient ambulated with a 4WW prior. Patient is oriented to person and place but is very weak on her right side. She leans to the left in sitting and requires MODA. Patient was able to stand with MODAx2 and handheld assist, but could not tolerate standing. She will likely need rehab prior to d/c. -To resume PT/OT after weekend. # Mild rhabdomyolysis - resolved -Cr wnl, CK elevated >600 on admission -D/c IVFs today, encourage food, drink #Elbow laceration -Per ED, deep and to the bone -Pain control -C/w abx for now, transition to PO when consistently taking pills #Right knee contusion -C/w treatment above -PT/OT #Depression. -Stable -C/w home med #HLD -Elevated cholesterol -c/w statin #DVT px -Enoxaparin DISPOSITION: C/w PT/OT. Possible rehab if improves. VS, I&O, 24H, Fishbone Vital Signs/I&O Vital Signs Date Time Temp Pulse Resp B/P (MAP) Pulse Ox O2 Delivery O2 Flow Rate FiO2 05/23/20 12:00 97.7 95 18 161/67 (98) 95 Room Air I&O- Last 24 Hours up to 6 AM 05/23/20 06:00 Intake Total 1762.5 ml Output Total 1525 ml Balance 237.5 ml Laboratory Data 24H LABS Laboratory Tests 2 05/23/20 03:47: Nucleated Red Blood Cells % (auto) 0.0, Anion Gap 7L, Glomerular Filtration Rate > 60.0, Calcium Level 7.9L CBC/BMP Laboratory Tests 05/23/20 03:47 Microbiology Microbiology 05/20/20 Blood Culture - Preliminary, Resulted No Growth after 72 hours. All specime... 05/20/20 Blood Culture - Preliminary, Resulted No Growth after 72 hours. All specime... Current Medications Current Medications Medications (Trade) Dose Ordered Sig/Chen Route PRN Reason Start Time Stop Time Status Last Admin Dose Admin Acetaminophen (Tylenol Tab) 650 mg Q4H PRN PO PAIN OR FEVER 05/20/20 16:00 Ampicillin Sodium/ Sulbactam Sodium 1.5 gm/Dextrose 50 ml @ 100 mls/hr Q6H IV 05/20/20 21:00 05/23/20 09:02 Aspirin (Aspirin Chewable) 81 mg DAILY PO 05/22/20 09:00 05/23/20 10:53 Aspirin (Aspirin) 300 mg DAILY [place] 05/21/20 09:00 05/22/20 01:01 DC 05/21/20 14:34 Atorvastatin Calcium (Lipitor) 40 mg DAILY PO 05/22/20 09:00 05/23/20 10:54 Clopidogrel Bisulfate (PLAVix) 75 mg DAILY PO 05/22/20 09:00 05/23/20 10:56 Enoxaparin Sodium (Lovenox) 30 mg DAILY SC 05/21/20 09:00 05/23/20 09:02 Home Med (Med Rec Complete!) ASDIRECTED XX 05/20/20 15:15 05/20/20 15:11 DC Hydralazine HCl (Apresoline) 10 mg STAT STAT IV 05/23/20 09:04 05/23/20 09:05 DC 05/23/20 09:14 Lisinopril (Prinivil) 5 mg DAILY PO 05/23/20 09:00 05/23/20 10:54 Nystatin (Mycostatin Powder, Nystop) Apply to intertriginous abdomi... BIDP PRN TOP RASH 05/20/20 22:00 Paroxetine HCl (PAXil) 20 mg DAILY PO 05/21/20 09:00 05/20/20 17:35 DC Potassium Chloride (Micro-K Extencaps) 20 meq DAILY PO 05/23/20 09:00 05/23/20 10:56 Sodium Chloride 1,000 ml @ 75 mls/hr [id number] IV 05/20/20 16:30 05/23/20 07:40 DC 05/23/20 04:42 Trazodone HCl (Desyrel) 25 mg QHS PO 05/22/20 21:00 05/22/20 21:15 Allergies Coded Allergies: No Known Allergies (Verified Allergy, Unknown, 05/20/20) Rizwana Tejada MD May 23, 2020 14:11
[2020-05-23] MEDS: ACETAMINOPHEN TAB 650MG DOSE (2X325MG) PO PRN (15:30)
[2020-05-23 16:00] VITALS: BP 150/66
[2020-05-23 20:00] VITALS: BP 138/62
[2020-05-24] VITALS: BP 142/66
[2020-05-24] MEDS: AMPICILLIN SOD/SULBACTAM SOD 1.5 GM in D5W MINI-BAG PLUS 50 ML IV SCH ×2 (03:38→08:37)
[2020-05-24 04:00] VITALS: BP 132/64
[2020-05-24 04:29] LABS: HEMATOCRIT 33.9 % (36.0-47.0); HEMOGLOBIN 11.1 g/dl (12.0-15.5); MEAN CORPUSCULAR HEMOGLOBIN 31.3 pg (27.0-33.0); MEAN CORPUSCULAR HGB CONC 32.7 g/dl (32.0-36.5); MEAN CORPUSCULAR VOLUME 95.5 fl (80.0-96.0); PLATELET COUNT, AUTOMATED 183 10^3/uL (150-450); RED BLOOD COUNT 3.55 10^6/uL (4.00-5.40); WHITE BLOOD COUNT 8.4 10^3/uL (4.0-10.0)
[2020-05-24 04:49] LABS: BLOOD UREA NITROGEN 13 MG/DL (7-18); CALCIUM LEVEL 7.8 MG/DL (8.8-10.2); CARBON DIOXIDE LEVEL 25 MEQ/L (21-32); CHLORIDE LEVEL 108 MEQ/L (98-107); CREATININE FOR GFR 0.68 MG/DL (0.55-1.30); GLOMERULAR FILTRATION RATE > 60.0 (>32); GLUCOSE, FASTING 114 MG/DL (70-100); POTASSIUM SERUM 3.4 MEQ/L (3.5-5.1); SODIUM LEVEL 138 MEQ/L (136-145)
[2020-05-24 08:00] VITALS: BP 137/63
[2020-05-24] MEDS: ASPIRIN 81 MG CHEW TABLET PO SCH (08:37)
[2020-05-24] MEDS: ATORVASTATIN 20 MG TAB PO SCH (08:38)
[2020-05-24] MEDS: POTASSIUM CHLORIDE 10 MEQ SR TABLET PO SCH (08:38)
[2020-05-24] MEDS: lisinopriL 5 MG TAB PO SCH (08:39)
[2020-05-24] MEDS: ENOXAPARIN 30MG/0.3ML SYRINGE (J1650 PER 10MG) SC SCH (08:39)
[2020-05-24] MEDS: CLOPIDOGREL 75 MG TAB PO SCH (08:39)
[2020-05-24 11:50] VITALS: BP 128/60
--- NOTE | 2020-05-24 12:37 | IPNPDOC ---
Date Seen The patient was seen on 05/24/20. Progress Note SUBJECTIVE: Sitting up in bed this AM, tearful when I mentioned family possibly Facetiming today. Ate some breakfast today. BP better controlled. Denies chest pain, fevers, chills, n/v/d. OBJECTIVE: PHYSICAL EXAMINATION: VS: Please see below CONSTITUTIONAL: tearful, lethargic, following commands EYES: PERRLA, EOM intact HENT, MOUTH: Normocephalic, atraumatic, dry oral mucous membranes NECK: SUPPLE, no JVD, no lymphadenopathy, no carotid bruit CV: Regular rate and rhythm, S1S2 normal, no murmurs/rubs/gallops RESPIRATORY: Clear to auscultation bilaterally, no rales/rhonchi/wheezes GI: BS positive in 4 quadrants, soft, nontender, nondistended, no rebound or guarding, no organomegaly : Deferred MUSCULOSKELETAL: right knee decreased ROM. Right knee swelling, bruising. No cyanosis, clubbing, joint deformity, extremity edema INTEGUMENTARY: Right elbow injury/laceration, swelling and tender to touch- healing well. Right knee bruising, tender to touch, no rashes, no lesions, no erythema- improving slowly. NEUROLOGIC: Right side facial droop persists, Right upper and lower ext weakness, 2/5 on exam for strength for RUE and RLE. 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 Strength on the left 4/5 which was similar to yesterday for upper and lower. Slurred speech. No pupillary deficits. AAOx2 LABORATORY DATA: Please see below IMAGING: Echocardiogram completed, pending results transcribed MRA brain: 1. Right internal carotid artery aneurysm. 2. Moderate stenoses left middle cerebral artery M1 segment. 3. Moderate stenosis proximal right anterior cerebral artery A1 segment. 4. Severe stenosis right posterior cerebral artery P1/2, P2 and P3 segments. 5. Severe stenosis left posterior cerebral artery P3 segment. 6. Moderate-severe stenoses proximal right MCA M2 inferior and superior divisions. MRI brain: 1. Acute left internal capsule lacunar infarction. 2. Chronic right deep nuclear and capsular white matter lacunar infarction. 3. Chronic left mid paraventricular goldstein radiata lacunar infarction. 4. Bilateral chronic thalamic lacunar infarctions. 5. Chronic microvascular ischemic white matter disease. Right elbow XR: No fracture or dislocation. CT head: 1. Chronic lacunar infarction right lentiform nucleus/capsular white matter. 2. Multiple small chronic lacunar infarctions bilateral thalami. 3. Age appropriate supratentorial and infratentorial atrophy. 4. Moderate chronic white matter microvascular ischemic disease. 5. No acute intracranial injury identified. 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 Goal is 140/80 mmHg. -C/w dual antiplatelet therapy: ASA and plavix. -PT/OT, speech therapy. #Hypertension -Better controlled with patient taking meds, fluid stopped -BP 137/53. -Please see plan above. #Altered mental status likely 2/2 to recent CVA with underlying mild cognitive impairment, depression -Remains slow to respond, tearful, sad. -Concern is for developing of depression with not eating, taking medications, increased weeping, tearful. -At this time cannot diagnose as depression as CVA only occurred several days ago. -Discussed case with Dr. Morrison who advised to hold off on treatment. Can reassess in 1 week, if depression screening positive then can consider starting SSRI like paroxetine or sertraline- safest in geriatric patients. Avoid venlafaxine, fluoxetine. #Unsteady gait 2/2 to CVA -PT: "Patient ambulated with a 4WW prior. Patient is oriented to person and place but is very weak on her right side. She leans to the left in sitting and requires MODA. Patient was able to stand with MODAx2 and handheld assist, but could not tolerate standing. She will likely need rehab prior to d/c. -To resume PT/OT after weekend. #Hypokalemia, acute likely 2/2 to decreased PO intake -Increased standing dose of KCl to 40 mEq daily l -F/u daily labs #Elbow laceration -Per ED, deep and to the bone -Pain control -D/c IV abx, Po to continue for 3 additional days. #Right knee contusion -Pain control, improving swelling -PT/OT #HLD -Elevated cholesterol -c/w statin #DVT px -Enoxaparin Resolved issues: # Mild rhabdomyolysis DISPOSITION: C/w PT/OT. Possible rehab if improves, if does not then will likely need SNF. VS, I&O, 24H, Fishbone Vital Signs/I&O Vital Signs Date Time Temp Pulse Resp B/P (MAP) Pulse Ox O2 Delivery O2 Flow Rate FiO2 05/24/20 08:39 137/60 05/24/20 08:00 99.1 89 20 95 Room Air I&O- Last 24 Hours up to 6 AM 05/24/20 06:00 Intake Total 660 ml Output Total 800 ml Balance -140 ml Laboratory Data 24H LABS Laboratory Tests 2 05/24/20 03:49: Nucleated Red Blood Cells % (auto) 0.0, Anion Gap 5L, Glomerular Filtration Rate > 60.0, Calcium Level 7.8L CBC/BMP Laboratory Tests 05/24/20 03:49 Microbiology Microbiology 05/20/20 Blood Culture - Preliminary, Resulted No Growth after 72 hours. All specime... 05/20/20 Blood Culture - Preliminary, Resulted No Growth after 72 hours. All specime... Current Medications Current Medications Medications (Trade) Dose Ordered Sig/Chen Route PRN Reason Start Time Stop Time Status Last Admin Dose Admin Acetaminophen (Tylenol Tab) 650 mg Q4H PRN PO PAIN OR FEVER 05/20/20 16:00 05/23/20 15:30 Ampicillin Sodium/ Sulbactam Sodium 1.5 gm/Dextrose 50 ml @ 100 mls/hr Q6H IV 05/20/20 21:00 05/24/20 08:37 Aspirin (Aspirin Chewable) 81 mg DAILY PO 05/22/20 09:00 05/24/20 08:37 Aspirin (Aspirin) 300 mg DAILY OR 05/21/20 09:00 05/22/20 01:01 DC 05/21/20 14:34 Atorvastatin Calcium (Lipitor) 40 mg DAILY PO 05/22/20 09:00 05/24/20 08:38 Clopidogrel Bisulfate (PLAVix) 75 mg DAILY PO 05/22/20 09:00 05/24/20 08:39 Enoxaparin Sodium (Lovenox) 30 mg DAILY SC 05/21/20 09:00 05/24/20 08:39 Home Med (Med Rec Complete!) ASDIRECTED XX 05/20/20 15:15 05/20/20 15:11 DC Hydralazine HCl (Apresoline) 10 mg STAT STAT IV 05/23/20 09:04 05/23/20 09:05 DC 05/23/20 09:14 Lisinopril (Prinivil) 5 mg DAILY PO 05/23/20 09:00 05/24/20 08:39 Nystatin (Mycostatin Powder, Nystop) Apply to intertriginous abdomi... BIDP PRN TOP RASH 05/20/20 22:00 Paroxetine HCl (PAXil) 20 mg DAILY PO 05/21/20 09:00 05/20/20 17:35 DC Potassium Chloride (Micro-K Extencaps) 20 meq DAILY PO 05/23/20 09:00 05/24/20 07:47 DC 05/23/20 10:56 Potassium Chloride (Micro-K Extencaps) 40 meq DAILY PO 05/24/20 09:00 05/24/20 08:38 Sodium Chloride 1,000 ml @ 75 mls/hr [id number] IV 05/20/20 16:30 05/23/20 07:40 DC 05/23/20 04:42 Trazodone HCl (Desyrel) 25 mg QHS PO 05/22/20 21:00 05/23/20 14:08 DC 05/22/20 21:15 Allergies Coded Allergies: No Known Allergies (Verified Allergy, Unknown, 05/20/20) Rizwana Tejada MD May 24, 2020 12:37
[2020-05-24 14:56] VITALS: BP 121/48
[2020-05-24] MEDS: AUGMENTIN 500 MG TAB PO SCH (20:08)
[2020-05-24 22:00] VITALS: BP 153/71
[2020-05-25 06:00] VITALS: BP 147/61
[2020-05-25 07:22] LABS: HEMATOCRIT 32.5 % (36.0-47.0); HEMOGLOBIN 10.5 g/dl (12.0-15.5); MEAN CORPUSCULAR HGB CONC 32.3 g/dl (32.0-36.5); MEAN CORPUSCULAR VOLUME 95.9 fl (80.0-96.0); PLATELET COUNT, AUTOMATED 196 10^3/uL (150-450); RED BLOOD COUNT 3.39 10^6/uL (4.00-5.40); WHITE BLOOD COUNT 7.5 10^3/uL (4.0-10.0)
[2020-05-25 08:13] LABS: BLOOD UREA NITROGEN 15 MG/DL (7-18); CALCIUM LEVEL 8.2 MG/DL (8.8-10.2); CARBON DIOXIDE LEVEL 25 MEQ/L (21-32); CHLORIDE LEVEL 108 MEQ/L (98-107); GLOMERULAR FILTRATION RATE > 60.0 (>32); GLUCOSE, FASTING 109 MG/DL (70-100); POTASSIUM SERUM 4.1 MEQ/L (3.5-5.1); SODIUM LEVEL 138 MEQ/L (136-145)
[2020-05-25] MEDS: ATORVASTATIN 20 MG TAB PO SCH (10:32)
[2020-05-25] MEDS: AUGMENTIN 500 MG TAB PO SCH ×2 (10:32→20:00)
[2020-05-25] MEDS: ASPIRIN 81 MG CHEW TABLET PO SCH (10:32)
[2020-05-25] MEDS: lisinopriL 5 MG TAB PO SCH (10:32)
[2020-05-25] MEDS: CLOPIDOGREL 75 MG TAB PO SCH (10:32)
[2020-05-25] MEDS: POTASSIUM CHLORIDE 10 MEQ SR TABLET PO SCH (10:33)
[2020-05-25] MEDS: ENOXAPARIN 30MG/0.3ML SYRINGE (J1650 PER 10MG) SC SCH (10:33)
--- NOTE | 2020-05-25 11:01 | CR ---
DATE OF CONSULTATION: 05/21/2020 REASON FOR CONSULTATION: Acute stroke REFERRING PROVIDER: Dr. Rizwana Tejada HISTORY OF PRESENT ILLNESS: The patient is an 84-year-old female with a past medical history significant for depression. The patient presents to [facility] with being found on the ground. The patient apparently had a fall. She does wear dentures and without them she has dysarthria. She was noted to have significant dysarthria, slightly rhabdomyolysis and was admitted to the hospital overnight. The following morning the patient was noted to have right sided weakness. The patient was suspected to have had an acute stroke. She was noted to have an acute stroke of the left internal capsule. The patient subsequently was placed on Aspirin and statin therapy. MR angiography revealed multiple areas of moderate to high grade intracranial stenosis. The patient was then recommended to start Plavix 75 mg daily in addition to low dose 81 mg Aspirin. Moderate stenosis of left MCA and one segment proximal right DELVIN A-1 segment, severe stenosis of the right SOLID TIRE FINISHER P-1 and P-2 segment and P-3 segment, severe stenosis of the left SOLID TIRE FINISHER P-3 segment, moderate to severe stenosis proximal right MCA M-2 inferior and superior division segments. Right internal carotid artery aneurysm results are noted. The patient is hard to understand. She breathes from her mouth. Her mucous membranes are extremely dry. She has been getting significant hydration during this visit. Carotid ultrasound showed less than 50% narrowing, mild carotid plaquing. MRI brain revealed left internal capsule lacunar acute infarct, chronic left mid periventricular goldstein radiata lacunar infarct, bilateral chronic thalamic lacunar infarctions, chronic right deep nuclear and capsular white matter lacunar infarctions and chronic microvascular ischemic disease. The patient is oriented to her name. She is able to understand and speak language without any aphasia. She has significant dysarthria. She is unable to move her right arm much. She has a right facial droop. She can slightly move her right fingers in flexion position. She can slightly bend her right elbow but cannot lift her arm up off the bed. She cannot lift her right leg up off the bed. She withdraws reasonably quickly to noxious stimuli of the lower extremities. The patient's review of systems was hard to obtain as the patient is severely dysarthric, though she denies any chest pain or shortness of breath. PAST MEDICAL HISTORY: The patient's past medical history is significant for: * Depression. * Obstructive sleep apnea. * Hyperlipidemia. PAST SURGICAL HISTORY: None. FAMILY HISTORY: Noncontributory. SOCIAL HISTORY: The patient denies use of any tobacco, alcohol or illicit drugs. REVIEW OF SYSTEMS: The patient's review of systems is as documented. PHYSICAL EXAMINATION: VITAL SIGNS: Blood pressure 162/80, pulse rate 76, respiratory rate is 20, oxygenation is 95% on room air. Temperature is 97.7 degrees Fahrenheit. GENERAL APPEARANCE: The patient is oriented to her name and location. She is able to follow commands. She has significant dysarthria. HEENT: She can track well with her eyes. There is no nystagmus noted. Tongue appears midline. Mucous membranes are dry. Right facial droop is noted in the upper motor neuron distribution. The patient is able to wrinkle her forehead. She has weakness in eye closure on the right side compared to the left. NEUROLOGICAL: The patient has dense weakness of the right upper and lower extremities. She can move her finger flexors minimally and elbow flexion minimally. She can withdraw her right lower extremity to noxious stimuli. She moves her left upper and lower extremity with normal strength. Only the right side is affected. Deep tendon reflexes are decreased in the lower extremities to the knee upper extremities. The patient has intact tactile stimulation sense to light touch. The rest of the neurological examination is difficult as the patient has difficult time cooperating due to significant right sided hemiparesis. There is no ataxia or dysmetria on left finger to nose. Gait deferred. ASSESSMENT: An 84-year-old female with past medical history significant for hyperlipidemia, prior multiple strokes, presenting with being found on the ground, possibly secondary to right sided hemiparesis versus acute stroke occurring secondary to hypertension noted in the Emergency Department period. Nonetheless, the patient has moderate to severe intracranial high grade stenosis. PLAN: * The patient will be started on low dose Aspirin plus Plavix 75 mg daily. * Statin therapy is to be continued. * PT/OT evaluations. * Telemetry monitoring. * Echocardiogram. * Carotid ultrasound. * The patient can be followed up in the Outpatient Neurology Clinic within 2-6 weeks of discharge. Edited: mary 06/08/2020 0741 MTDD
[2020-05-25 14:00] VITALS: BP 124/60
--- NOTE | 2020-05-25 14:45 | ECHO ---
DATE OF PROCEDURE: 05/21/2020 Age: 84 Gender: Female Height: 66 inches Weight: 149 pounds Body surface area: 1.77 m2 PATIENT LOCATION: Inpatient [address] [place] [address], Room 4230. REFERRING PHYSICIAN: Dr. Rizwana Tejada INDICATION: Dizziness. MEASUREMENTS: 2D Measurements: RV 3.0 cm LV 4.4 cm Septum 0.8 cm Posterior wall 0.8 cm Aortic Root 3.1 cm LA 3.6 cm LVEF 75% Doppler Measurements: AV 1.05 msec LVOT 1.0 msec MV-E 66, A 122, E/A ratio 0.5 E prime medial 7.5, A prime medial 7, E prime lateral 7.4 Average E/E prime ratio 8.9/PCWP 12.9 mmHg PV 0.8 msec Pulmonary artery acceleration time 110 msec RVSP 30 mmHg IVC 1.0 cm COMMENTS: Normal sinus rhythm with intraventricular conduction disturbance. M-mode and two-dimensional echocardiography was performed with pulse, continuous wave, color flow, and tissue Doppler studies. Normal left ventricular size, wall thickness, and hyperkinetic wall motion. Left atrial size upper limits of normal with grade 1 left ventricular (LV) diastolic dysfunction, but normal estimated mean left atrial pressure. Normal right heart chamber sizes and motion and estimated pulmonary arterial pressure upper limits of normal to borderline increased. Inferior vena cava (IVC) was somewhat reduced in size with normal respiratory collapse suggestive of a somewhat low central venous pressure. Normal aortic dimensions. Normal appearing and functioning aortic valvular structure. Mild mitral annular calcification with adequate leaflet excursion and no posterior systolic buckling. Only trace-very mild mitral insufficiency (physiologic). Normal appearing and functioning tricuspid valve with very mild insufficiency. No apparent intracardiac mass or pericardial effusion. MTDD
--- NOTE | 2020-05-25 16:00 | IPNPDOC ---
Date Seen The patient was seen on 05/25/20. Progress Note SUBJECTIVE: Tearful today on exam, resumed home paroxetine. Eating better with assistance. Per PT: would benefit from continued services, skilled facility likely. Denies chest pain, fevers, chills, n/v/d. OBJECTIVE: PHYSICAL EXAMINATION: VS: Please see below CONSTITUTIONAL: tearful, lethargic, following commands EYES: PERRLA, EOM intact HENT, MOUTH: Normocephalic, atraumatic, dry oral mucous membranes NECK: SUPPLE, no JVD, no lymphadenopathy, no carotid bruit CV: Regular rate and rhythm, S1S2 normal, no murmurs/rubs/gallops RESPIRATORY: Clear to auscultation bilaterally, no rales/rhonchi/wheezes GI: BS positive in 4 quadrants, soft, nontender, nondistended, no rebound or guarding, no organomegaly : Deferred MUSCULOSKELETAL: right knee decreased ROM. Right knee swelling, bruising. No cyanosis, clubbing, joint deformity, extremity edema INTEGUMENTARY: Right elbow injury/laceration, swelling and tender to touch- healing well, stitches in place. Right knee bruising, tender to touch, no rashes, no lesions, no erythema- improving slowly. NEUROLOGIC: Right side facial droop persists, Right upper and lower ext weakness, 2/5 on exam for strength for RUE and RLE. 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 Strength on the left 4/5 which was similar to yesterday for upper and lower. Slurred speech. No pupillary deficits. AAOx2 LABORATORY DATA: Please see below IMAGING: Echocardiogram completed, pending results transcribed MRA brain: 1. Right internal carotid artery aneurysm. 2. Moderate stenoses left middle cerebral artery M1 segment. 3. Moderate stenosis proximal right anterior cerebral artery A1 segment. 4. Severe stenosis right posterior cerebral artery P1/2, P2 and P3 segments. 5. Severe stenosis left posterior cerebral artery P3 segment. 6. Moderate-severe stenoses proximal right MCA M2 inferior and superior divisions. MRI brain: 1. Acute left internal capsule lacunar infarction. 2. Chronic right deep nuclear and capsular white matter lacunar infarction. 3. Chronic left mid paraventricular goldstein radiata lacunar infarction. 4. Bilateral chronic thalamic lacunar infarctions. 5. Chronic microvascular ischemic white matter disease. Right elbow XR: No fracture or dislocation. CT head: 1. Chronic lacunar infarction right lentiform nucleus/capsular white matter. 2. Multiple small chronic lacunar infarctions bilateral thalami. 3. Age appropriate supratentorial and infratentorial atrophy. 4. Moderate chronic white matter microvascular ischemic disease. 5. No acute intracranial injury identified. 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 -PT/OT, speech therapy. #Hypertension -Better controlled with patient taking meds -Please see plan above. #Depression -Hx of depression with mild cognitive impairment -Remains slow to respond, tearful, sad. -Eating when helped to be fed. -Resumed home paroxetine today #Unsteady gait 2/2 to CVA -PT: "Pt remains slow to respond and requires inc time to process directions. Pt continues to have dec sitting balance and difficulty with weight shifting to advance RLE. Pt remains below PLOF and will cont to benefit from skilled PT. Recommending cont rehab" -PT/OT #Elbow laceration -Per ED, deep and to the bone -Pain control -D/c IV abx, Po to continue for 3 additional days. #Right knee contusion -Pain control, improving swelling -PT/OT #HLD -Elevated cholesterol -c/w statin #DVT px -Enoxaparin Resolved issues: # Mild rhabdomyolysis #Hypokalemia, acute likely 2/2 to decreased PO intake DISPOSITION: C/w PT/OT. Will likely need SNF. PFS aware. VS, I&O, 24H, Fishbone Vital Signs/I&O Vital Signs Date Time Temp Pulse Resp B/P (MAP) Pulse Ox O2 Delivery O2 Flow Rate FiO2 05/25/20 14:00 99.0 87 20 124/60 (81) 97 Room Air I&O- Last 24 Hours up to 6 AM 05/25/20 06:00 Intake Total 1230 ml Output Total 600 ml Balance 630 ml Laboratory Data 24H LABS Laboratory Tests 2 05/25/20 06:46: Nucleated Red Blood Cells % (auto) 0.0, Anion Gap 5L, Glomerular Filtration Rate > 60.0, Calcium Level 8.2L CBC/BMP Laboratory Tests 05/25/20 06:46 Microbiology Microbiology 05/20/20 Blood Culture - Final, Complete NO GROWTH AFTER 5 DAYS 05/20/20 Blood Culture - Final, Complete NO GROWTH AFTER 5 DAYS Current Medications Current Medications Medications (Trade) Dose Ordered Sig/Chen Route PRN Reason Start Time Stop Time Status Last Admin Dose Admin Acetaminophen (Tylenol Tab) 650 mg Q4H PRN PO PAIN OR FEVER 05/20/20 16:00 05/23/20 15:30 Amoxicillin/ Clavulanate Potassium (Augmentin) 500 mg BID PO 05/24/20 21:00 05/26/20 20:00 05/25/20 10:32 Ampicillin Sodium/ Sulbactam Sodium 1.5 gm/Dextrose 50 ml @ 100 mls/hr Q6H IV 05/20/20 21:00 05/24/20 12:37 DC 05/24/20 08:37 Aspirin (Aspirin Chewable) 81 mg DAILY PO 05/22/20 09:00 05/25/20 10:32 Aspirin (Aspirin) 300 mg DAILY IN 05/21/20 09:00 05/22/20 01:01 DC 05/21/20 14:34 Atorvastatin Calcium (Lipitor) 40 mg DAILY PO 05/22/20 09:00 05/25/20 10:32 Clopidogrel Bisulfate (PLAVix) 75 mg DAILY PO 05/22/20 09:00 05/25/20 10:32 Enoxaparin Sodium (Lovenox) 30 mg DAILY SC 05/21/20 09:00 05/25/20 10:33 Home Med (Med Rec Complete!) ASDIRECTED XX 05/20/20 15:15 05/20/20 15:11 DC Hydralazine HCl (Apresoline) 10 mg STAT STAT IV 05/23/20 09:04 05/23/20 09:05 DC 05/23/20 09:14 Lisinopril (Prinivil) 5 mg DAILY PO 05/23/20 09:00 05/25/20 10:32 Nystatin (Mycostatin Powder, Nystop) Apply to intertriginous abdomi... BIDP PRN TOP RASH 05/20/20 22:00 Paroxetine HCl (PAXil) 20 mg DAILY PO 05/21/20 09:00 05/20/20 17:35 DC Potassium Chloride (Micro-K Extencaps) 20 meq DAILY PO 05/23/20 09:00 05/24/20 07:47 DC 05/23/20 10:56 Potassium Chloride (Micro-K Extencaps) 40 meq DAILY PO 05/24/20 09:00 05/25/20 10:33 Sodium Chloride 1,000 ml @ 75 mls/hr [id number] IV 05/20/20 16:30 05/23/20 07:40 DC 05/23/20 04:42 Trazodone HCl (Desyrel) 25 mg QHS PO 05/22/20 21:00 05/23/20 14:08 DC 05/22/20 21:15 Allergies Coded Allergies: No Known Allergies (Verified Allergy, Unknown, 05/20/20) Rizwana Tejada MD May 25, 2020 16:00
[2020-05-25] MEDS: PARoxetine 20MG TABLET PO SCH (17:40)
[2020-05-25 22:00] VITALS: BP 169/89
[2020-05-26 06:57] LABS: HEMATOCRIT 36.4 % (36.0-47.0); HEMOGLOBIN 12.1 g/dl (12.0-15.5); MEAN CORPUSCULAR HEMOGLOBIN 31.3 pg (27.0-33.0); MEAN CORPUSCULAR HGB CONC 33.2 g/dl (32.0-36.5); MEAN CORPUSCULAR VOLUME 94.3 fl (80.0-96.0); PLATELET COUNT, AUTOMATED 247 10^3/uL (150-450); RED BLOOD COUNT 3.86 10^6/uL (4.00-5.40); WHITE BLOOD COUNT 8.8 10^3/uL (4.0-10.0)
[2020-05-26 07:23] LABS: ALBUMIN 2.6 GM/DL (3.2-5.2); ALT/SGPT 39 U/L (12-78); BILIRUBIN,TOTAL 0.9 MG/DL (0.2-1.0); BLOOD UREA NITROGEN 13 MG/DL (7-18); CALCIUM LEVEL 8.4 MG/DL (8.8-10.2); CARBON DIOXIDE LEVEL 21 MEQ/L (21-32); CHLORIDE LEVEL 104 MEQ/L (98-107); CREATININE FOR GFR 0.55 MG/DL (0.55-1.30); GLOMERULAR FILTRATION RATE > 60.0 (>32); GLUCOSE, FASTING 111 MG/DL (70-100); POTASSIUM SERUM 4.6 MEQ/L (3.5-5.1); SODIUM LEVEL 135 MEQ/L (136-145); TOTAL PROTEIN 6.4 GM/DL (6.4-8.2)
[2020-05-26] MEDS: ATORVASTATIN 20 MG TAB PO SCH (09:40)
[2020-05-26] MEDS: AUGMENTIN 500 MG TAB PO SCH (09:40)
[2020-05-26] MEDS: PARoxetine 20MG TABLET PO SCH (09:41)
[2020-05-26] MEDS: CLOPIDOGREL 75 MG TAB PO SCH (09:41)
[2020-05-26] MEDS: lisinopriL 5 MG TAB PO SCH (09:41)
[2020-05-26] MEDS: ASPIRIN 81 MG CHEW TABLET PO SCH (09:41)
[2020-05-26] MEDS: ENOXAPARIN 30MG/0.3ML SYRINGE (J1650 PER 10MG) SC SCH (09:42)
[2020-05-26] MEDS: POTASSIUM CHLORIDE 10 MEQ SR TABLET PO SCH (11:49)
[2020-05-26 14:00] VITALS: BP 138/66
--- NOTE | 2020-05-26 16:27 | IPNPDOC ---
Text Note Date of Service The patient was seen on 05/26/20. NOTE SUBJECTIVE: -Denies chest pain, fevers, chills, n/v/d. -Depressed OBJECTIVE: VS: Please see below. HDS, afebrile, on room air CONSTITUTIONAL: NAD EYES: PERRLA, EOM intact HENT, MOUTH: Normocephalic, atraumatic, MMM NECK: SUPPLE, no JVD, no lymphadenopathy CV: Regular rate and rhythm, S1S2 normal, no murmurs/rubs/gallops RESPIRATORY: Clear to auscultation bilaterally, no rales/rhonchi/wheezes GI: Normoactive bowel sounds in 4 quadrants, soft, nontender, nondistended, no rebound or guarding, no organomegaly : Deferred MUSCULOSKELETAL: right knee decreased ROM. Right knee swelling, bruising. EXTREMITIES: No cyanosis, clubbing, joint deformity, extremity edema. WWP SKIN: Right elbow injury/laceration, mild swelling, healing, stitches in place. Right knee bruising, tender to touch, no rashes, no lesions, no erythema. NEUROLOGIC: Right side facial droop persists, Right upper and lower ext weakness, 2/5 on exam for strength for RUE and RLE. Left 4/5 strength, which was similar to previously noted for upper and lower. Slurred speech. AAOx2 LABORATORY DATA: reviewed, stable. Please see below IMAGING: Echocardiogram completed, pending results transcribed MRA brain: 1. Right internal carotid artery aneurysm. 2. Moderate stenoses left middle cerebral artery M1 segment. 3. Moderate stenosis proximal right anterior cerebral artery A1 segment. 4. Severe stenosis right posterior cerebral artery P1/2, P2 and P3 segments. 5. Severe stenosis left posterior cerebral artery P3 segment. 6. Moderate-severe stenoses proximal right MCA M2 inferior and superior divisions. MRI brain: 1. Acute left internal capsule lacunar infarction. 2. Chronic right deep nuclear and capsular white matter lacunar infarction. 3. Chronic left mid paraventricular goldstein radiata lacunar infarction. 4. Bilateral chronic thalamic lacunar infarctions. 5. Chronic microvascular ischemic white matter disease. Right elbow XR: No fracture or dislocation. CT head: 1. Chronic lacunar infarction right lentiform nucleus/capsular white matter. 2. Multiple small chronic lacunar infarctions bilateral thalami. 3. Age appropriate supratentorial and infratentorial atrophy. 4. Moderate chronic white matter microvascular ischemic disease. 5. No acute intracranial injury identified. 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 #Hypertension -Better controlled with patient now resumed meds -on lisinopril #Depression -Hx of depression with mild cognitive impairment -Remains slow to respond, tearful, sad. -Eating when helped -Continue home paroxetine #Unsteady gait 2/2 to CVA -PT: "Pt remains slow to respond and requires increased time to process d irections. Pt continues to have decreased sitting balance and difficulty with weight shifting to advance RLE. Pt remains below PLOF and will cont to benefit from skilled PT. Recommending cont rehab" -continue PT/OT while inpatient #Elbow laceration -Per ED, deep and to the bone -Pain control -Augmentin completion today #Right knee contusion -Pain control, improving swelling -PT/OT #HLD -Elevated cholesterol -c/w statin #DVT px -Enoxaparin Resolved issues: # Mild rhabdomyolysis #Hypokalemia, acute likely 2/2 to decreased PO intake DISPOSITION: C/w PT/OT. Will likely need SNF. PFS aware. VS,Fishbone, I+O VS, Fishbone, I+O Laboratory Tests 05/26/20 06:47 Vital Signs Date Time Temp Pulse Resp B/P (MAP) Pulse Ox O2 Delivery O2 Flow Rate FiO2 05/25/20 22:00 99.3 99 19 169/89 (115) 95 Room Air I&O- Last 24 Hours up to 6 AM 05/26/20 06:00 Intake Total 20 ml Output Total 150 ml Balance -130 ml HELIO AUSTIN MD May 26, 2020 09:03
[2020-05-26 21:23] VITALS: BP 139/66
[2020-05-27 06:00] VITALS: BP 134/62
[2020-05-27] MEDS: ASPIRIN 81 MG CHEW TABLET PO SCH (09:08)
[2020-05-27] MEDS: CLOPIDOGREL 75 MG TAB PO SCH (09:08)
[2020-05-27] MEDS: ATORVASTATIN 20 MG TAB PO SCH (09:09)
[2020-05-27] MEDS: PARoxetine 20MG TABLET PO SCH (09:09)
[2020-05-27] MEDS: lisinopriL 5 MG TAB PO SCH (09:09)
[2020-05-27] MEDS: ENOXAPARIN 30MG/0.3ML SYRINGE (J1650 PER 10MG) SC SCH (09:10)
[2020-05-27] MEDS: POTASSIUM CHLORIDE 10 MEQ SR TABLET PO SCH (09:10)
--- NOTE | 2020-05-27 11:22 | REPVR ---
PROCEDURE INFORMATION: Exam: CT Head Without Contrast Exam date and time: 05/27/2020 10:58 AM Age: 84 years old Clinical indication: Altered mental status/memory loss; Additional info: Change in mentation TECHNIQUE: Imaging protocol: Computed tomography of the head without contrast. Radiation optimization: All CT scans at this facility use at least one of these dose optimization techniques: automated exposure control; mA and/or kV adjustment per patient size (includes targeted exams where dose is matched to clinical indication); or iterative reconstruction. COMPARISON: CT Head without contrast 05/20/2020 9:45 AM FINDINGS: Brain: There is moderate ill-defined patchy hypodensity within the bilateral cerebral periventricular white matter, consistent with chronic microvascular ischemic changes. Chronic ischemic changes/lacunar infarctions are seen in bilateral basal ganglia. There is moderate diffuse cerebral atrophy present, consistent with this patient's age. Cerebral ventricles: The ventricular system demonstrates moderate diffuse compensatory enlargement. Bones/joints: Unremarkable. No acute fracture. Paranasal sinuses: Visualized sinuses are unremarkable. No fluid levels. Mastoid air cells: Visualized mastoid air cells are well aerated. Vasculature: There is atherosclerotic calcification of the bilateral cavernous carotid arteries. Soft tissues: Unremarkable. IMPRESSION: 1. No acute infarction, masses or hemorrhage is seen. No acute intracranial abnormality is identified. 2. Diffuse age-related cerebral atrophy and moderate chronic microvascular white matter ischemic changes, without evidence of an acute intracranial abnormality. 3. [place] Stroke Program Early CT Score (ASPECTS) = 10 Electronically signed by: Feliz Matta On 05/27/2020 11:21:54 AM
[2020-05-27 14:00] VITALS: BP 133/61
--- NOTE | 2020-05-27 18:44 | IPNPDOC ---
Text Note Date of Service The patient was seen on 05/27/20. NOTE SUBJECTIVE: -Denies chest pain, fevers, chills, n/v/d. -No acute complaints OBJECTIVE: VS: Please see below. HDS, afebrile, on room air CONSTITUTIONAL: NAD EYES: PERRLA, EOM intact HENT, MOUTH: Normocephalic, atraumatic, MMM NECK: SUPPLE, no JVD, no lymphadenopathy CV: Regular rate and rhythm, S1S2 normal, no murmurs/rubs/gallops RESPIRATORY: Clear to auscultation bilaterally, no rales/rhonchi/wheezes GI: Normoactive bowel sounds in 4 quadrants, soft, nontender, nondistended, no rebound or guarding, no organomegaly EXTREMITIES: No cyanosis, clubbing, joint deformity, extremity edema. WWP SKIN: Right elbow injury/laceration, mild swelling, healing, stitches in place. Right knee bruising, tender to touch, no rashes, no lesions, no erythema. NEUROLOGIC: Right side facial droop persists, Right upper and lower ext weakness, 2/5 on exam for strength for RUE and RLE. Left 4/5 strength, which was similar to previously noted for upper and lower. Slurred speech. AAOx2 LABORATORY DATA: reviewed, AM labs pending Please see below IMAGING: Echocardiogram completed, pending results transcribed MRA brain: 1. Right internal carotid artery aneurysm. 2. Moderate stenoses left middle cerebral artery M1 segment. 3. Moderate stenosis proximal right anterior cerebral artery A1 segment. 4. Severe stenosis right posterior cerebral artery P1/2, P2 and P3 segments. 5. Severe stenosis left posterior cerebral artery P3 segment. 6. Moderate-severe stenoses proximal right MCA M2 inferior and superior divisions. MRI brain: 1. Acute left internal capsule lacunar infarction. 2. Chronic right deep nuclear and capsular white matter lacunar infarction. 3. Chronic left mid paraventricular goldstein radiata lacunar infarction. 4. Bilateral chronic thalamic lacunar infarctions. 5. Chronic microvascular ischemic white matter disease. Right elbow XR: No fracture or dislocation. CT head: 1. Chronic lacunar infarction right lentiform nucleus/capsular white matter. 2. Multiple small chronic lacunar infarctions bilateral thalami. 3. Age appropriate supratentorial and infratentorial atrophy. 4. Moderate chronic white matter microvascular ischemic disease. 5. No acute intracranial injury identified. 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 #Hypertension -Better controlled with patient now resumed meds -on lisinopril #Depression -Hx of depression with mild cognitive impairment -Remains slow to respond, tearful, sad. -Eating when helped -Continue home paroxetine #Unsteady gait 2/2 to CVA -PT: "Pt remains slow to respond and requires increased time to process directions. Pt continues to have decreased sitting balance and difficulty with weight shifting to advance RLE. Pt remains below PLOF and will cont to benefit from skilled PT. Recommending cont rehab" -continue PT/OT while inpatient #Elbow laceration -Per ED, deep and to the bone -Pain control -Augmentin completion today #Right knee contusion -Pain control, improving swelling -PT/OT #HLD -Elevated cholesterol -c/w statin #DVT px -Enoxaparin Resolved issues: # Mild rhabdomyolysis #Hypokalemia, acute likely 2/2 to decreased PO intake DISPOSITION: C/w PT/OT. PFS working with family to get her to [facility]. VS,Fishbone, I+O VS, Fishbone, I+O Vital Signs Date Time Temp Pulse Resp B/P (MAP) Pulse Ox O2 Delivery O2 Flow Rate FiO2 05/27/20 09:09 132/64 05/27/20 06:00 98.7 87 20 95 Room Air I&O- Last 24 Hours up to 6 AM 05/27/20 06:00 Intake Total 370 ml Output Total 500 ml Balance -130 ml HELIO AUSTIN MD May 27, 2020 09:55
[2020-05-27 22:00] VITALS: BP 136/67
[2020-05-28 06:00] VITALS: BP 150/67
[2020-05-28 07:03] LABS: HEMOGLOBIN 11.7 g/dl (12.0-15.5); MEAN CORPUSCULAR HEMOGLOBIN 31.4 pg (27.0-33.0); MEAN CORPUSCULAR HGB CONC 32.5 g/dl (32.0-36.5); MEAN CORPUSCULAR VOLUME 96.5 fl (80.0-96.0); PLATELET COUNT, AUTOMATED 283 10^3/uL (150-450); RED BLOOD COUNT 3.73 10^6/uL (4.00-5.40); WHITE BLOOD COUNT 8.3 10^3/uL (4.0-10.0)
[2020-05-28 07:30] LABS: BLOOD UREA NITROGEN 14 MG/DL (7-18); CALCIUM LEVEL 8.4 MG/DL (8.8-10.2); CARBON DIOXIDE LEVEL 26 MEQ/L (21-32); CHLORIDE LEVEL 103 MEQ/L (98-107); CREATININE FOR GFR 0.59 MG/DL (0.55-1.30); GLOMERULAR FILTRATION RATE > 60.0 (>32); GLUCOSE, FASTING 111 MG/DL (70-100); POTASSIUM SERUM 4.2 MEQ/L (3.5-5.1); SODIUM LEVEL 136 MEQ/L (136-145)
[2020-05-28] MEDS: ENOXAPARIN 30MG/0.3ML SYRINGE (J1650 PER 10MG) SC SCH (09:45)
[2020-05-28] MEDS: POTASSIUM CHLORIDE 10 MEQ SR TABLET PO SCH (09:45)
[2020-05-28] MEDS: ASPIRIN 81 MG CHEW TABLET PO SCH (09:45)
[2020-05-28] MEDS: ATORVASTATIN 20 MG TAB PO SCH (09:45)
[2020-05-28] MEDS: CLOPIDOGREL 75 MG TAB PO SCH (09:46)
[2020-05-28] MEDS: ACETAMINOPHEN TAB 650MG DOSE (2X325MG) PO PRN (09:46)
[2020-05-28] MEDS: lisinopriL 5 MG TAB PO SCH (09:47)
[2020-05-28] MEDS: PARoxetine 20MG TABLET PO SCH (09:47)
--- NOTE | 2020-05-28 13:25 | IPNPDOC ---
Text Note Date of Service The patient was seen on 05/28/20. NOTE SUBJECTIVE: -Denies chest pain, fevers, chills, n/v/d. -No acute complaints -Yesterday had some reported episodes of being "out of it", had CT head with any bleed or acute pathology. OBJECTIVE: VS: Please see below. HDS, afebrile, on room air CONSTITUTIONAL: NAD EYES: PERRLA, EOM intact HENT, MOUTH: Normocephalic, atraumatic, MMM NECK: SUPPLE, no JVD, no lymphadenopathy CV: Regular rate and rhythm, S1S2 normal, no murmurs/rubs/gallops RESPIRATORY: Clear to auscultation bilaterally, no rales/rhonchi/wheezes GI: Normoactive bowel sounds in 4 quadrants, soft, nontender, nondistended, no rebound or guarding, no organomegaly EXTREMITIES: No cyanosis, clubbing, joint deformity, extremity edema. WWP SKIN: Right elbow injury/laceration, mild swelling, healing, stitches in place. Right knee bruising, tender to touch, no rashes, no lesions, no erythema. NEUROLOGIC: Right side facial droop persists, Right upper and lower ext weakness, 2/5 on exam for strength for RUE and RLE. Left 4/5 strength, which was similar to previously noted for upper and lower. Slurred speech. AAOx2 LABORATORY DATA: reviewed, AM labs pending Please see below IMAGING: Echocardiogram completed, pending results transcribed MRA brain: 1. Right internal carotid artery aneurysm. 2. Moderate stenoses left middle cerebral artery M1 segment. 3. Moderate stenosis proximal right anterior cerebral artery A1 segment. 4. Severe stenosis right posterior cerebral artery P1/2, P2 and P3 segments. 5. Severe stenosis left posterior cerebral artery P3 segment. 6. Moderate-severe stenoses proximal right MCA M2 inferior and superior divisions. MRI brain: 1. Acute left internal capsule lacunar infarction. 2. Chronic right deep nuclear and capsular white matter lacunar infarction. 3. Chronic left mid paraventricular goldstein radiata lacunar infarction. 4. Bilateral chronic thalamic lacunar infarctions. 5. Chronic microvascular ischemic white matter disease. Right elbow XR: No fracture or dislocation. CT head: 1. Chronic lacunar infarction right lentiform nucleus/capsular white matter. 2. Multiple small chronic lacunar infarctions bilateral thalami. 3. Age appropriate supratentorial and infratentorial atrophy. 4. Moderate chronic white matter microvascular ischemic disease. 5. No acute intracranial injury identified. Repeat CT head: No acute intracranial injury identified. 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 #Hypertension -Better controlled with patient now resumed meds -on lisinopril #Depression -Hx of depression with mild cognitive impairment -Remains slow to respond, tearful, sad. -Eating when helped -Continue home paroxetine #Unsteady gait 2/2 to CVA -PT: "Pt remains slow to respond and requires increased time to process dire ctions. Pt continues to have decreased sitting balance and difficulty with weight shifting to advance RLE. Pt remains below PLOF and will cont to benefit from skilled PT. Recommending cont rehab" -continue PT/OT while inpatient #Elbow laceration -Per ED, deep and to the bone -Pain control -Augmentin completion today #Right knee contusion -Pain control, improving swelling -PT/OT #HLD -Elevated cholesterol -c/w statin #DVT px -Enoxaparin Resolved issues: # Mild rhabdomyolysis #Hypokalemia, acute likely 2/2 to decreased PO intake DISPOSITION: C/w PT/OT. PFS working with family to get her to [facility]. VS,Camilo, I+O VS, Adonise, I+O Laboratory Tests 05/28/20 06:49 Vital Signs Date Time Temp Pulse Resp B/P (MAP) Pulse Ox O2 Delivery O2 Flow Rate FiO2 05/28/20 09:47 150/67 05/28/20 06:00 98.8 77 17 95 Room Air I&O- Last 24 Hours up to 6 AM 05/28/20 06:00 Intake Total 310 ml Output Total 100 ml Balance 210 ml HELIO AUSTIN MD May 28, 2020 11:38
[2020-05-28 15:45] VITALS: BP 118/46
[2020-05-28 22:00] VITALS: BP 163/80
[2020-05-28 22:12] VITALS: BP 125/71
[2020-05-29 06:00] VITALS: BP 146/69
[2020-05-29 07:08] LABS: HEMATOCRIT 36.1 % (36.0-47.0); HEMOGLOBIN 11.3 g/dl (12.0-15.5); MEAN CORPUSCULAR HEMOGLOBIN 30.5 pg (27.0-33.0); MEAN CORPUSCULAR HGB CONC 31.3 g/dl (32.0-36.5); MEAN CORPUSCULAR VOLUME 97.3 fl (80.0-96.0); PLATELET COUNT, AUTOMATED 341 10^3/uL (150-450); RED BLOOD COUNT 3.71 10^6/uL (4.00-5.40)
[2020-05-29 07:31] LABS: BLOOD UREA NITROGEN 16 MG/DL (7-18); CALCIUM LEVEL 8.4 MG/DL (8.8-10.2); CARBON DIOXIDE LEVEL 26 MEQ/L (21-32); CHLORIDE LEVEL 104 MEQ/L (98-107); CREATININE FOR GFR 0.65 MG/DL (0.55-1.30); GLOMERULAR FILTRATION RATE > 60.0 (>32); GLUCOSE, FASTING 106 MG/DL (70-100); POTASSIUM SERUM 4.5 MEQ/L (3.5-5.1); SODIUM LEVEL 136 MEQ/L (136-145)
[2020-05-29] MEDS: POTASSIUM CHLORIDE 10 MEQ SR TABLET PO SCH (09:56)
[2020-05-29] MEDS: ATORVASTATIN 20 MG TAB PO SCH (09:56)
[2020-05-29] MEDS: ACETAMINOPHEN TAB 650MG DOSE (2X325MG) PO PRN (09:56)
[2020-05-29] MEDS: lisinopriL 5 MG TAB PO SCH (09:57)
[2020-05-29] MEDS: ASPIRIN 81 MG CHEW TABLET PO SCH (09:57)
[2020-05-29] MEDS: CLOPIDOGREL 75 MG TAB PO SCH (09:57)
[2020-05-29] MEDS: PARoxetine 20MG TABLET PO SCH (09:57)
[2020-05-29] MEDS: ENOXAPARIN 30MG/0.3ML SYRINGE (J1650 PER 10MG) SC SCH (09:58)
--- NOTE | 2020-05-29 13:54 | IPNPDOC ---
Text Note Date of Service The patient was seen on 05/29/20. NOTE SUBJECTIVE: -Denies chest pain, fevers, chills, n/v/d. -No acute complaints OBJECTIVE: VS: Please see below. HDS, afebrile, on room air CONSTITUTIONAL: NAD EYES: PERRLA, EOM intact HENT, MOUTH: Normocephalic, atraumatic, MMM NECK: SUPPLE, no JVD, no lymphadenopathy CV: Regular rate and rhythm, S1S2 normal, no murmurs/rubs/gallops RESPIRATORY: Clear to auscultation bilaterally, no rales/rhonchi/wheezes GI: Normoactive bowel sounds in 4 quadrants, soft, nontender, nondistended, no rebound or guarding, no organomegaly EXTREMITIES: No cyanosis, clubbing, joint deformity, extremity edema. WWP SKIN: Right elbow injury/laceration, mild swelling, healing, stitches in place. Right knee bruising, tender to touch, no rashes, no lesions, no erythema. NEUROLOGIC: Right side facial droop persists, Right upper and lower ext weakness, 2/5 on exam for strength for RUE and RLE. Left 4/5 strength, which was similar to previously noted for upper and lower. Slurred speech. AAOx2 PSYCH: Depressed mood, would like to go home, but understands that the kids are organizing plan for [facility] rehab LABORATORY DATA: reviewed, AM labs pending Please see below IMAGING: Echocardiogram completed, pending results transcribed MRA brain: 1. Right internal carotid artery aneurysm. 2. Moderate stenoses left middle cerebral artery M1 segment. 3. Moderate stenosis proximal right anterior cerebral artery A1 segment. 4. Severe stenosis right posterior cerebral artery P1/2, P2 and P3 segments. 5. Severe stenosis left posterior cerebral artery P3 segment. 6. Moderate-severe stenoses proximal right MCA M2 inferior and superior divisions. MRI brain: 1. Acute left internal capsule lacunar infarction. 2. Chronic right deep nuclear and capsular white matter lacunar infarction. 3. Chronic left mid paraventricular goldstein radiata lacunar infarction. 4. Bilateral chronic thalamic lacunar infarctions. 5. Chronic microvascular ischemic white matter disease. Right elbow XR: No fracture or dislocation. CT head: 1. Chronic lacunar infarction right lentiform nucleus/capsular white matter. 2. Multiple small chronic lacunar infarctions bilateral thalami. 3. Age appropriate supratentorial and infratentorial atrophy. 4. Moderate chronic white matter microvascular ischemic disease. 5. No acute intracranial injury identified. Repeat CT head: No acute intracranial injury identified. 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 #Hypertension -Better controlled with patient now resumed meds -on lisinopril #Depression -Hx of depression with mild cognitive impairment -Remains slow to respond, tearful, sad. -Eating when helped -Continue home paroxetine #Unsteady gait 2/2 to CVA -PT: "Pt remains slow to respond and requires increased time to process directions. Pt continues to have decreased sitting balance and difficulty with weight shifting to advance RLE. Pt remains below PLOF and will cont to benefit from skilled PT. Recommending cont rehab" -continue PT/OT while inpatient #Elbow laceration -Per ED, deep and to the bone -Pain control -Augmentin completion today #Right knee contusion -Pain control, improving swelling -PT/OT #HLD -Elevated cholesterol -c/w statin #DVT px -Enoxaparin Resolved issues: # Mild rhabdomyolysis #Hypokalemia, acute likely 2/2 to decreased PO intake DISPOSITION: C/w PT/OT. PFS working with family to get her to [facility]. VS,Adonise, I+O VS, Fishbone, I+O Laboratory Tests 05/29/20 06:40 Vital Signs Date Time Temp Pulse Resp B/P (MAP) Pulse Ox O2 Delivery O2 Flow Rate FiO2 05/29/20 06:00 98.8 88 18 146/69 (94) 93 Room Air l I&O- Last 24 Hours up to 6 AM 05/29/20 06:00 Intake Total 600 ml Output Total 0 ml Balance 600 ml HELIO AUSTIN MD May 29, 2020 09:03
[2020-05-29 14:00] VITALS: BP 132/65
[2020-05-29 19:40] VITALS: BP 117/63
[2020-05-30 06:26] VITALS: BP 122/63
[2020-05-30 07:23] LABS: HEMATOCRIT 37.1 % (36.0-47.0); HEMOGLOBIN 11.7 g/dl (12.0-15.5); MEAN CORPUSCULAR HEMOGLOBIN 30.5 pg (27.0-33.0); MEAN CORPUSCULAR HGB CONC 31.5 g/dl (32.0-36.5); MEAN CORPUSCULAR VOLUME 96.9 fl (80.0-96.0); PLATELET COUNT, AUTOMATED 352 10^3/uL (150-450); RED BLOOD COUNT 3.83 10^6/uL (4.00-5.40); WHITE BLOOD COUNT 8.4 10^3/uL (4.0-10.0)
[2020-05-30 07:38] LABS: BLOOD UREA NITROGEN 12 MG/DL (7-18); CALCIUM LEVEL 8.9 MG/DL (8.8-10.2); CARBON DIOXIDE LEVEL 28 MEQ/L (21-32); CHLORIDE LEVEL 103 MEQ/L (98-107); CREATININE FOR GFR 0.64 MG/DL (0.55-1.30); GLOMERULAR FILTRATION RATE > 60.0 (>32); GLUCOSE, FASTING 105 MG/DL (70-100); POTASSIUM SERUM 4.7 MEQ/L (3.5-5.1); SODIUM LEVEL 136 MEQ/L (136-145)
[2020-05-30] MEDS: lisinopriL 5 MG TAB PO SCH (08:28)
[2020-05-30] MEDS: CLOPIDOGREL 75 MG TAB PO SCH (08:28)
[2020-05-30] MEDS: ASPIRIN 81 MG CHEW TABLET PO SCH (08:28)
[2020-05-30] MEDS: PARoxetine 20MG TABLET PO SCH (08:28)
[2020-05-30] MEDS: ATORVASTATIN 20 MG TAB PO SCH (08:28)
[2020-05-30] MEDS: ENOXAPARIN 30MG/0.3ML SYRINGE (J1650 PER 10MG) SC SCH (08:30)
[2020-05-30] MEDS: POTASSIUM CHLORIDE 10 MEQ SR TABLET PO SCH (09:00)
[2020-05-30 14:00] VITALS: BP 122/61
--- NOTE | 2020-05-30 14:16 | IPNPDOC ---
Text Note Date of Service The patient was seen on 05/30/20. NOTE SUBJECTIVE: -Denies chest pain, fevers, chills, n/v/d. -No acute complaints -Sad that she cannot go home at this time. OBJECTIVE: VS: Please see below. HDS, afebrile, on room air CONSTITUTIONAL: NAD EYES: PERRLA, EOM intact HENT, MOUTH: Normocephalic, atraumatic, MMM NECK: SUPPLE, no JVD, no lymphadenopathy CV: Regular rate and rhythm, S1S2 normal, no murmurs/rubs/gallops RESPIRATORY: Clear to auscultation bilaterally, no rales/rhonchi/wheezes GI: Normoactive bowel sounds in 4 quadrants, soft, nontender, nondistended, no rebound or guarding, no organomegaly EXTREMITIES: No cyanosis, clubbing, joint deformity, extremity edema. WWP SKIN: Right elbow injury/laceration, mild swelling, healing, stitches in place. Right knee bruising, tender to touch, no rashes, no lesions, no erythema. NEUROLOGIC: Right side facial droop persists, Right upper and lower ext weakn ess, 2/5 on exam for strength for RUE and RLE. Left 4/5 strength, which was similar to previously noted for upper and lower. Slurred speech. AAOx2 PSYCH: AOx2 to person and place. LABORATORY DATA: reviewed, AM labs pending Please see below IMAGING: Echocardiogram completed, pending results transcribed MRA brain: 1. Right internal carotid artery aneurysm. 2. Moderate stenoses left middle cerebral artery M1 segment. 3. Moderate stenosis proximal right anterior cerebral artery A1 segment. 4. Severe stenosis right posterior cerebral artery P1/2, P2 and P3 segments. 5. Severe stenosis left posterior cerebral artery P3 segment. 6. Moderate-severe stenoses proximal right MCA M2 inferior and superior divisions. MRI brain: 1. Acute left internal capsule lacunar infarction. 2. Chronic right deep nuclear and capsular white matter lacunar infarction. 3. Chronic left mid paraventricular goldstein radiata lacunar infarction. 4. Bilateral chronic thalamic lacunar infarctions. 5. Chronic microvascular ischemic white matter disease. Right elbow XR: No fracture or dislocation. CT head: 1. Chronic lacunar infarction right lentiform nucleus/capsular white matter. 2. Multiple small chronic lacunar infarctions bilateral thalami. 3. Age appropriate supratentorial and infratentorial atrophy. 4. Moderate chronic white matter microvascular ischemic disease. 5. No acute intracranial injury identified. Repeat CT head: No acute intracranial injury identified. 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 #Hypertension -Better controlled with patient now resumed meds -on lisinopril #Depression -Hx of depression with mild cognitive impairment -Remains slow to respond, tearful, sad. -Eating when helped -Continue home paroxetine #Unsteady gait 2/2 to CVA -PT: "Pt remains slow to respond and requires increased time to process directions. Pt continues to have decreased sitting balance and difficulty with weight shifting to advance RLE. Pt remains below PLOF and will cont to benefit from skilled PT. Recommending cont rehab" -continue PT/OT while inpatient #Elbow laceration -Per ED, deep and to the bone -Pain control -Augmentin completion today #Right knee contusion -Pain control, improving swelling -PT/OT #HLD -Elevated cholesterol -c/w statin #DVT px -Enoxaparin Resolved issues: # Mild rhabdomyolysis #Hypokalemia, acute likely 2/2 to decreased PO intake DISPOSITION: C/w PT/OT. PFS working with family to get her to [facility] Will make ALC at this time VS,Fishbone, I+O VS, Fishbone, I+O Laboratory Tests 05/30/20 07:00 Vital Signs Date Time Temp Pulse Resp B/P (MAP) Pulse Ox O2 Delivery O2 Flow Rate FiO2 05/30/20 06:26 97.6 87 20 122/63 (82) 96 Room Air I&O- Last 24 Hours up to 6 AM 05/30/20 06:00 Intake Total 820 ml Balance 820 ml HELIO AUSTIN MD May 30, 2020 08:07
[2020-05-30 19:33] VITALS: BP 168/72
[2020-05-30 19:45] VITALS: BP 172/68
[2020-05-30 23:35] VITALS: BP 124/62
[2020-05-31 06:29] VITALS: BP 109/66
[2020-05-31 07:26] LABS: HEMATOCRIT 38.2 % (36.0-47.0); HEMOGLOBIN 12.4 g/dl (12.0-15.5); MEAN CORPUSCULAR HEMOGLOBIN 31.3 pg (27.0-33.0); MEAN CORPUSCULAR HGB CONC 32.5 g/dl (32.0-36.5); MEAN CORPUSCULAR VOLUME 96.5 fl (80.0-96.0); PLATELET COUNT, AUTOMATED 419 10^3/uL (150-450); RED BLOOD COUNT 3.96 10^6/uL (4.00-5.40); WHITE BLOOD COUNT 8.5 10^3/uL (4.0-10.0)
[2020-05-31 07:52] LABS: BLOOD UREA NITROGEN 16 MG/DL (7-18); CALCIUM LEVEL 8.8 MG/DL (8.8-10.2); CARBON DIOXIDE LEVEL 28 MEQ/L (21-32); CHLORIDE LEVEL 103 MEQ/L (98-107); GLOMERULAR FILTRATION RATE > 60.0 (>32); GLUCOSE, FASTING 103 MG/DL (70-100); POTASSIUM SERUM 4.9 MEQ/L (3.5-5.1); SODIUM LEVEL 137 MEQ/L (136-145)
[2020-05-31] MEDS: PARoxetine 20MG TABLET PO SCH (09:43)
[2020-05-31] MEDS: CLOPIDOGREL 75 MG TAB PO SCH (09:43)
[2020-05-31] MEDS: ATORVASTATIN 20 MG TAB PO SCH (09:43)
[2020-05-31] MEDS: ASPIRIN 81 MG CHEW TABLET PO SCH (09:43)
[2020-05-31] MEDS: POTASSIUM CHLORIDE 10 MEQ SR TABLET PO SCH (09:44)
[2020-05-31] MEDS: lisinopriL 5 MG TAB PO SCH (09:44)
[2020-05-31] MEDS: ENOXAPARIN 30MG/0.3ML SYRINGE (J1650 PER 10MG) SC SCH (09:45)
[2020-06-01 06:00] VITALS: BP 105/62
[2020-06-01 06:55] LABS: HEMATOCRIT 36.8 % (36.0-47.0); HEMOGLOBIN 11.7 g/dl (12.0-15.5); MEAN CORPUSCULAR HEMOGLOBIN 30.7 pg (27.0-33.0); MEAN CORPUSCULAR HGB CONC 31.8 g/dl (32.0-36.5); MEAN CORPUSCULAR VOLUME 96.6 fl (80.0-96.0); PLATELET COUNT, AUTOMATED 408 10^3/uL (150-450); RED BLOOD COUNT 3.81 10^6/uL (4.00-5.40); WHITE BLOOD COUNT 7.8 10^3/uL (4.0-10.0)
[2020-06-01 07:16] LABS: BLOOD UREA NITROGEN 18 MG/DL (7-18); CALCIUM LEVEL 8.7 MG/DL (8.8-10.2); CARBON DIOXIDE LEVEL 26 MEQ/L (21-32); CHLORIDE LEVEL 104 MEQ/L (98-107); CREATININE FOR GFR 0.79 MG/DL (0.55-1.30); GLOMERULAR FILTRATION RATE > 60.0 (>32); GLUCOSE, FASTING 111 MG/DL (70-100); POTASSIUM SERUM 4.8 MEQ/L (3.5-5.1); SODIUM LEVEL 135 MEQ/L (136-145)
[2020-06-01] MEDS: ASPIRIN 81 MG CHEW TABLET PO SCH (08:45)
[2020-06-01] MEDS: POTASSIUM CHLORIDE 10 MEQ SR TABLET PO SCH (08:45)
[2020-06-01] MEDS: CLOPIDOGREL 75 MG TAB PO SCH (08:45)
[2020-06-01] MEDS: PARoxetine 20MG TABLET PO SCH (08:45)
[2020-06-01] MEDS: ENOXAPARIN 30MG/0.3ML SYRINGE (J1650 PER 10MG) SC SCH (08:45)
[2020-06-01] MEDS: lisinopriL 5 MG TAB PO SCH (08:46)
[2020-06-01] MEDS: ATORVASTATIN 20 MG TAB PO SCH (08:46)
[2020-06-02 06:00] VITALS: BP 115/54
[2020-06-02 08:42] VITALS: BP 115/54
[2020-06-02] MEDS: PARoxetine 20MG TABLET PO SCH (08:42)
[2020-06-02] MEDS: CLOPIDOGREL 75 MG TAB PO SCH (08:42)
[2020-06-02] MEDS: lisinopriL 5 MG TAB PO SCH (08:42)
[2020-06-02] MEDS: ATORVASTATIN 20 MG TAB PO SCH (08:42)
[2020-06-02] MEDS: ENOXAPARIN 30MG/0.3ML SYRINGE (J1650 PER 10MG) SC SCH (08:43)
[2020-06-02] MEDS: ASPIRIN 81 MG CHEW TABLET PO SCH (08:43)
[2020-06-02] MEDS: POTASSIUM CHLORIDE 10 MEQ SR TABLET PO SCH (08:43)
[2020-06-02] MEDS ORDERED: ASPI81CH8 PO (10:10)
[2020-06-02] MEDS ORDERED: KLOR10TA76 PO (10:10)
[2020-06-02] MEDS ORDERED: NYST10006 TOP (10:10)
[2020-06-02] MEDS ORDERED: LISI-542 PO (10:10)
[2020-06-02] MEDS ORDERED: ATOR1TAB21 PO (10:10)
[2020-06-02] MEDS ORDERED: CLOP75TA2 PO (10:10)
--- NOTE | 2020-06-02 13:16 | DS.PDOC ---
Discharge Summary General Date of Admission May 24, 2020 at 08:17 Date of Discharge 06/02/20 Attending Physician: Rizwana Tejada MD Discharge Summary HISTORY OF PRESENT ILLNESS: Patient is an 84-year-old female with past medical history of depression, unsteady gait requiring walker and cane who presented to [facility] emergency room after calling 911 after falling last evening. The patient is difficult to understand due to her not having her dentures and; however, she is able to recount some of the events of last evening. According to the patient she fell after becoming dizzy. She did not loose consciousness and fell to the ground. She attempted to get up but could not. She is calling 911. She denies chest pain, loss of consciousness, shortness of breath, nausea, vomiting, recent illness, fevers, chills, abdominal pain during the time of her fall. She also denies hitting her head upon eating the ground. She does remember falling and hitting her right elbow and her right knee. In the emergency room the patient was noted to have a laceration of her right elbow which appear to be down to the bone. She was started on antibiotics and stitched. She has had a right knee contusion which was causing significant pain. No concerning focal deficits, neurological issues. Blood pressure was 180 systolic likely secondary to her uncontrolled pain. CT head: neg for acute findings. Neuro exam neg in ER. The patient was given some blood pressure medication and pain medication which helped. Due to her injuries was difficult to ambulate her in the emergency room. CK was elevated at over 600. WBC within normal limits. UA negative, blood cultures were pending. The patient was admitted for fall with extremity injury, unsteady gait, mild rhabdomyolysis. HOSPITAL COURSE: The patient was noted to develop right side hemiparesis over night. MRI/MRA confirmed left IC lacunar infarct, acute. BP was controlled on low dose med regimen. She was started on ASA, plavix- dual antiplatelet therapy per neuro. Mild rhabdomyolysis improved. Patient required extensive PT with skilled needs. Decision was made to discharge to [facility] on 06/02/20. At time of discharge, patient had no acute complaints. REVIEW OF SYSTEMS: CONSTITUTIONAL: Deniesunexplained weight gain or weight loss, loss of appetite, fever, night sweats EYES: Denies eye drainage, eye pain, visual changes, dry/irritated eye EARS, NOSE, MOUTH, THROAT: Denies difficulty hearing, ringing in ears, mouth sores, loose teeth, sore throat, facial numbness or pain NECK: Denies swollen glands CARDIOVASCULAR: Denies irregular heartbeat, racing heart, chest pains, swelling of feet or legs, pain in legs with walking RESPIRATORY: Denies shortness of breath, night sweats, wheezing, sputum production, oxygen at home, coughing up blood, cough lasting > 1 month GASTROINTESTINAL: Denies abdominal pain, constipation, bloody stool, diarrhea, heartburn, nausea, vomiting GENITOURINARY: Denies painful urination, bloody urine, frequent urination, urgency, leaking urine, impotence INTEGUMENTARY: Denies rash, itching, new skin lesion, change in existing skin lesion, hair loss or increase, breast changes. NEUROLOGICAL: Denies headaches PSYCHIATRIC: Denies recurrent bad thoughts, mood swings, hallucinations PAST MEDICAL HISTORY: 1. Depression 2. Hx of unsteady gait 3. Hx of multiple strokes seen on CT 4. DIANA 5. HLD PAST SURGICAL HISTORY: None FAMILY HISTORY: Father: cancer. at 69 y/o Mother: cancer. at 49 y/o. SOCIAL HISTORY: Denies smoking, alcohol or drug use. Patient lives alone and has life alert. She states help comes weekly. She does not drive. She has a son Nic who she would like notified. She is a full code. ALLERGIES: Please see below. ALLERGIES: Please see below. DISCHARGE MEDICATIONS: Please see below. OBJECTIVE: VS: Please see below. CONSTITUTIONAL: NAD EYES: PERRLA, EOM intact HENT, MOUTH: Normocephalic, atraumatic, MMM NECK: SUPPLE, no JVD, no lymphadenopathy CV: Regular rate and rhythm, S1S2 normal, no murmurs/rubs/gallops RESPIRATORY: Clear to auscultation bilaterally, no rales/rhonchi/wheezes GI: Normoactive bowel sounds in 4 quadrants, soft, nontender, nondistended, no rebound or guarding, no organomegaly EXTREMITIES: No cyanosis, clubbing, joint deformity, extremity edema. WWP SKIN: Right elbow injury/laceration, mild swelling, healing, stitches in place. Right knee bruising, tender to touch, no rashes, no lesions, no erythema. NEUROLOGIC: Right side facial droop persists, Right upper and lower ext weakness, 2/5 on exam for strength for RUE and RLE. Left 4/5 strength, which was similar to previously noted for upper and lower. Slurred speech. AAOx2 PSYCH: AOx2 to person and place. LABORATORY DATA: reviewed, AM labs pending Please see below IMAGING: Echocardiogram: Normal sinus rhythm with intraventricular conduction disturbance. M-mode and two-dimensional echocardiography was performed with pulse, continuouswave, color flow, and tissue Doppler studies. Normal left ventricular size, wall thickness, and hyperkinetic wall motion. Left atrial size upper limits of normal with grade 1 left ventricular (LV) diastolic dysfunction, but normal estimated mean left atrial pressure Normal right heart chamber sizes and motion and estimated pulmonary arterial pressure upper limits of normal to borderline increased. Inferior vena cava (IVC) was somewhat reduced in size with normal respiratory collapse suggestive of a somewhat low central venous pressure. Normal aortic dimensions. Normal appearing and functioning aortic valvular structure. Mild mitral annular calcification with adequate leaflet excursion and no posterior systolic buckling. Only trace-very mild mitral insufficiency (physiologic). Normal appearing and functioning tricuspid valve with very mild insufficiency. No apparent intracardiac mass or pericardial effusion. MRA brain: 1. Right internal carotid artery aneurysm. 2. Moderate stenoses left middle cerebral artery M1 segment. 3. Moderate stenosis proximal right anterior cerebral artery A1 segment. 4. Severe stenosis right posterior cerebral artery P1/2, P2 and P3 segments. 5. Severe stenosis left posterior cerebral artery P3 segment. 6. Moderate-severe stenoses proximal right MCA M2 inferior and superior divisions. MRI brain: 1. Acute left internal capsule lacunar infarction. 2. Chronic right deep nuclear and capsular white matter lacunar infarction. 3. Chronic left mid paraventricular goldstein radiata lacunar infarction. 4. Bilateral chronic thalamic lacunar infarctions. 5. Chronic microvascular ischemic white matter disease. Right elbow XR: No fracture or dislocation. CT head: 1. Chronic lacunar infarction right lentiform nucleus/capsular white matter. 2. Multiple small chronic lacunar infarctions bilateral thalami. 3. Age appropriate supratentorial and infratentorial atrophy. 4. Moderate chronic white matter microvascular ischemic disease. 5. No acute intracranial injury identified. Repeat CT head: No acute intracranial injury identified. 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 PLAN: #Acute left internal capsule lacunar CVA with right side hemiparesis -BP within normal limits -Lipid panel: high cholesterol, on statin -Speech therapy evaluated: pureed diet, thin liquids -Neuro consulted and evaluated, recommended ASA/plavix -Echocardiogram above -C/w statin, lisinopril , dual antiplatelet therapy -PT/OT: to continue -Speech therapy: to continue #Hypertension -Better controlled with patient now resumed meds -on lisinopril #Depression -Hx of depression with mild cognitive impairment -Remains slow to respond, tearful, sad at times . -Eating when helped -Continue home paroxetine #Unsteady gait 2/2 to CVA -PT: "Pt remains slow to respond and requires increased time to process directions. Pt continues to have decreased sitting balance and difficulty with weight shifting to advance RLE. Pt remains below PLOF and will cont to benefit from skilled PT. Recommending cont rehab" -continue PT/OT #Elbow laceration -Per ED, deep and to the bone. Stitches removed 06/02/20 -Pain control -Augmentin completed #Right knee contusion -Pain control, improving swelling -PT/OT #HLD -Elevated cholesterol -c/w statin Resolved issues: # Mild rhabdomyolysis #Hypokalemia, acute likely 2/2 to decreased PO intake DISPOSITION:D/c to [facility]. TIME SPENT ON DISCHARGE: Greater than 30 minutes. Vital Signs/I&Os Vital Signs Date Time Temp Pulse Resp B/P (MAP) Pulse Ox O2 Delivery O2 Flow Rate FiO2 06/02/20 08:42 115/54 06/02/20 06:00 98.0 76 18 91 Room Air I&O- Last 24 Hours up to 6 AM 06/02/20 06:00 Intake Total 0 ml Balance 0 ml Laboratory Data Labs 24H Laboratory Tests 2 06/02/20 10:39: Coronavirus (COVID-19)(PCR) NEGATIVE Discharge Medications Scheduled Alendronate Sodium (Alendronate Sodium) 70 Mg Tablet, 70 MG PO QWEEK, (Reported) Aspirin (Children's Aspirin) 81 Mg Tab.chew, 81 MG PO DAILY Atorvastatin Calcium (Atorvastatin Calcium) 20 Mg Tablet, 40 MG PO DAILY Clopidogrel Bisulfate (Clopidogrel) 75 Mg Tablet, 75 MG PO DAILY Lisinopril (Lisinopril) 5 Mg Tablet, 5 MG PO DAILY Paroxetine HCl (Paroxetine) 20 Mg Tablet, 20 MG PO DAILY, (Reported) Potassium Chloride (Klor-Con M10) 10 Meq Tab.er.prt, 20 MEQ PO DAILY Scheduled PRN Nystatin (Nystop) 60 Gm Powder, 1 DOSE TOP BIDP PRN for RASH Apply to groin, under breasts Allergies Coded Allergies: No Known Allergies (Verified Allergy, Unknown, 05/20/20) Rizwana Tejada MD Jun 02, 2020 13:16
== END 2020-06-02 13:01 | DRG 65 ==
LOC: M ED 09:05 → EDBD 09:05 → M ED INP 09:06 → ENRESERV 16:12 → M MSPAV 18:16 → M PCU 05-21 12:58 → OBSVTOIN 05-24 08:17 → M MS5PR 05-24 11:42
PROVIDERS: ADMIT Internal Medicine; ATTEND Internal Medicine
DX: I63.512 Cerebral infarction due to unspecified occlusion or stenosis of left middle cerebral artery (principal); M62.82 Rhabdomyolysis; G81.91 Hemiplegia, unspecified affecting right dominant side; R42 Dizziness and giddiness; I95.1 Orthostatic hypotension; F32.9 Major depressive disorder, single episode, unspecified; R26.81 Unsteadiness on feet; R29.810 Facial weakness; R47.1 Dysarthria and anarthria; I72.0 Aneurysm of carotid artery; G47.33 Obstructive sleep apnea (adult) (pediatric); E78.5 Hyperlipidemia, unspecified; E87.6 Hypokalemia; I16.0 Hypertensive urgency; S80.01XA Contusion of right knee, initial encounter; G31.84 Mild cognitive impairment of uncertain or unknown etiology; S51.011A Laceration without foreign body of right elbow, initial encounter; W19.XXXD Unspecified fall, subsequent encounter; Y92.009 Unspecified place in unspecified non-institutional (private) residence as the place of occurrence of the external cause; Z79.899 Other long term (current) drug therapy; Z86.73 Personal history of transient ischemic attack (TIA), and cerebral infarction without residual deficits; Z20.828 Contact with and (suspected) exposure to other viral communicable diseases